=== PATIENT | male | born 1980 | race Caucasian/White ===

== ENCOUNTER → 2018-04-05 11:01 | Outpatient (CLI) | payer BC, SELFPAY ==
[2018-04-05 12:13] LABS: Hematocrit 43.1 % (40-54); Hemoglobin 14.8 g/dl (13.0-16.5); Mean Corp Hgb Conc 34.3 g/gl (32-36); Mean Corpuscular Hgb 31.7 pg (27.0-32.0); Mean Corpuscular Volume 92.3 fL (80-94); Mean Platelet Vol. 10.9 fl (6.2-12.0); Platelet Count 231 K/mm3 (150-450); RBC Distribution Width CV 12.9 % (11.6-14.6); RBC Distribution Width SD 42.6 fl (35.1-43.9); Red Blood Count 4.67 M/mm3 (4.6-6.2)
[2018-04-05 12:18] LABS: Scan Indicated on CBC? Y/N NO
[2018-04-05 12:38] LABS: AST(SGOT) 24 U/L (15-37); Alanine Aminotransfer ALT/SGPT 39 U/L (16-61); Albumin, Serum 3.8 g/dL (3.2-5.0); Alkaline Phosphatase 56 U/L (45-117); Anion Gap 9 (5-15); BUN 15 mg/dL (7-18); Calcium,Total 8.5 mg/dL (8.5-10.1); Chloride 106 mmol/L (98-107); Cholesterol 232 mg/dL (200); Creatinine, Serum 0.94 mg/dL (0.70-1.30); EST Glomerular Filtration Rate 95 mL/min (>60); Est Glom Filt Rate - Afr Amer 115 mL/min (>60); Globulin 3.7 g/dL (2.2-4.2); Glucose 88 mg/dL (74-106); High Density Lipoprotein 39 mg/dL; Potassium 4.1 mmol/L (3.5-5.1); Protein, Total 7.5 g/dL (6.4-8.2); Sodium Level 142 mmol/L (136-145); Thyroid Stim Hormone (TSH) 2.46 uIU/mL (0.358-3.74); Triglycerides 153 mg/dL; Very Low Density Lipoprotein 31 mg/dL (5-40)
== END ==
LOC: MTLAB 11:07
PROVIDERS: Family Provider Family Medicine; PCP Family Medicine; Visit Provider Family Medicine
DX: E66.01 Morbid (severe) obesity due to excess calories (principal)
CPT/HCPCS: 36415; 80053; 80061; 84443; 85027

== ENCOUNTER → 2018-10-11 09:33 | Outpatient (CLI) | payer BC, SELFPAY ==
[2018-10-11 12:25] LABS: Cholesterol 222 mg/dL (200); High Density Lipoprotein 35 mg/dL; Triglycerides 271 mg/dL; Very Low Density Lipoprotein 54 mg/dL (5-40)
--- OUTSIDE RECORDS SUMMARY | 2019-01-12 16:32 | XMS RPT_ITS ---
:1980 Author Organization [facility] Care Team Providers Name Role Phone VANDASTEVE Attending Unavailable YOGI SAN MD Primary Care Unavailable Yogi San Attending Unavailable Yogi San Primary Care Unavailable Yogi San Attending Unavailable Yogi San Referring Unavailable Yogi San Primary Care Unavailable PROBLEMS PROBLEMS DATE TYPE CONDITION / CODE ATTENDING STATUS SOURCE 04/05/2018 Unknown E66.01 - Morbid Yogi San Active Ale (severe) obesity Community due to excess Hospital calories / Repository E66.01(ICD-10) PROCEDURES PROCEDURES No Procedure Records FoundRESULTS RESULTS LIPID PROFILE Collected: 10/11/2018 Status: F Source: [facility] 9:35 AM [facility] REPOSITORY TYPE CODE TESTS RESULT OUT OF RANGE REFERENCE UNITS LAB L501.4900 200 mg/dL High CHOL 222 Result Comment: <200 mg/dL Desirable 200-240 mg/dL Borderline >240 mg/dL High Risk LAB L501.5000 mg/dL High TRIG 271 Result Comment: The drugs N-Acetylcysteine and Metamizole may falsely depress this assay. Serum Triglycerides Reference Interval Normal <150 mg/dL Borderline high 150 - 199 mg/dL High 200 - 499 mg/dL Very High > or = 500 mg/dL LAB L501.6400 mg/dL Low HDL 35 Result Comment: The drugs N-Acetylcysteine and Metamizole may falsely depress this assay. Reference Range HDL <40 mg/dL Low HDL Cholesterol HDL >or= 60 mg/dL High HDL Cholesterol LAB L501.6500 0-130 mg/dL High LDL 133 LAB L501.6600 5-40 mg/dL High VLDL 54 Performed By: #### L500.4100 #### [facility] [address] [place], [address] XR KNEE THREE VIEWS Observed: 04/14/2018 Status: F Source: [facility] 10:38 PM [facility]ATION REPOSITORY ORIGINAL XR KNEE THREE VIEWS RIGHT CLINICAL STATEMENT: Lateral RIGHT knee pain after twisting injury today COMPARISON: None FINDINGS: No acute fracture or dislocation is identified. No joint effusion is seen. The joint spaces are maintained. There is no radiopaque foreign body. IMPRESSION: No acute fracture or dislocation. I have personally reviewed the images of this examination and agree with the resident's findings and interpretation. Interpreted By: Hudson Newton MD Preliminary Report By: Orion Treviño DO Electronically Signed By: Hudson Newton MD Dictated Date: 04/14/2018 10:42:53 PM Prelim Date: 04/14/2018 10:44:11 PM Sign Date: 04/14/2018 10:54:46 PM CBC-COMPLETE BLOOD CNT Collected: 04/05/2018 Status: F Source: [facility] NO DIFF 11:10 AM [facility] REPOSITORY TYPE CODE TESTS RESULT OUT OF RANGE REFERENCE UNITS LAB L100.1000 4.4-11.0 K/mm3 Normal WBC 8.0 LAB L100.1200 4.6-6.2 M/mm3 Normal RBC 4.67 LAB L100.1300 13.0-16.5 g/dl Normal HGB 14.8 LAB L100.1400 40-54 % Normal HCT 43.1 LAB L100.1500 80-94 fL Normal MCV 92.3 LAB L100.1600 27.0-32.0 pg Normal MCH 31.7 LAB L100.1700 32-36 g/gl Normal MCHC 34.3 LAB L100.1810 11.6-14.6 % Normal RDW CV 12.9 LAB L100.1820 35.1-43.9 fl Normal RDW SD 42.6 LAB L100.1900 150-450 K/mm3 Normal PLT 231 LAB L100.2000 6.2-12.0 fl Normal MPV 10.9 Performed By: #### L100.0500 #### [facility] [address] [place], [address] COMPREHENSIVE METABOLIC Collected: 04/05/2018 Status: F Source: [facility] 11:10 AM [facility] REPOSITORY TYPE CODE TESTS RESULT OUT OF RANGE REFERENCE UNITS LAB L501.0100 74-106 mg/dL Normal GLU 88 Result Comment: Please note revised GLUCOSE reference range effective 2017. LAB L501.1000 7-18 mg/dL Normal BUN 15 LAB L501.1100 0.70-1.30 mg/dL Normal CREAT,SERUM 0.94 Result Comment: The validity of the calculated GFR AND GFRAA in patients over 70 years has not been determined. Clinical correlation is essential. LAB L501.1110 >60 mL/min Normal EST GFR 95 Result Comment: Non- GFR Calc LAB L501.1115 >60 mL/min Normal EST GFR - AA 115 Result Comment: GFR Calc LAB L501.1300 10-20 RATIO Normal BUN/CRE 16.0 LAB L501.1500 6.4-8.2 g/dL T Normal PROT 7.5 LAB L501.1800 3.2-5.0 g/dL Normal ALB 3.8 LAB L501.1950 2.2-4.2 g/dL Normal GLOB 3.7 LAB L501.2000 0.9-2.4 RATIO Normal A/G 1.0 LAB L501.2200 8.5-10.1 mg/dL CA Normal 8.5 LAB L501.4100 15-37 U/L Normal AST 24 LAB L501.4305 45-117 U/L Normal ALK P 56 LAB L501.4405 16-61 U/L Normal ALT 39 LAB L501.4600 0.20-1.00 mg/dL T Normal BILI 0.30 LAB L501.5300 136-145 mmol/L NA Normal 142 LAB L501.5600 3.5-5.1 mmol/L K Normal 4.1 LAB L501.5900 98-107 mmol/L CL Normal 106 LAB L501.6100 21.0-32.0 mmol/L Normal CO2 27.0 LAB L501.6200 5-15 Normal GAP 9 Performed By: #### L500.4050, L500.4100, L501.9520 #### [facility] [address] [place], [place], [id number] LIPID PROFILE Collected: 04/05/2018 Status: F Source: [facility] 11:10 AM [facility] REPOSITORY TYPE CODE TESTS RESULT OUT OF RANGE REFERENCE UNITS LAB L501.4900 200 mg/dL High CHOL 232 Result Comment: <200 mg/dL Desirable 200-240 mg/dL Borderline >240 mg/dL High Risk LAB L501.5000 mg/dL Normal TRIG 153 Result Comment: The drugs N-Acetylcysteine and Metamizole may falsely depress this assay. Serum Triglycerides Reference Interval Normal <150 mg/dL Borderline high 150 - 199 mg/dL High 200 - 499 mg/dL Very High > or = 500 mg/dL LAB L501.6400 mg/dL Low HDL 39 Result Comment: The drugs N-Acetylcysteine and Metamizole may falsely depress this assay. Reference Range HDL <40 mg/dL Low HDL Cholesterol HDL >or= 60 mg/dL High HDL Cholesterol LAB L501.6500 0-130 mg/dL High LDL 162 LAB L501.6600 5-40 mg/dL Normal VLDL 31 Performed By: #### L500.4050, L500.4100, L501.9520 #### [facility] [address] [place], [place], [id number] THYROID STIM HORMONE Collected: 04/05/2018 Status: F Source: [facility] (TSH) 11:10 AM [facility] REPOSITORY TYPE CODE TESTS RESULT OUT OF RANGE REFERENCE UNITS LAB L501.9520 0.358-3.74 uIU/mL Normal TSH 2.46 Performed By: #### L500.4050, L500.4100, L501.9520 #### [facility] [address] [place], [address] ALLERGIES ALLERGIES No Allergies Records FoundENCOUNTERS ENCOUNTERS ADMIT/DISCHARGE ACCOUNT NUMBER ADMITTING ENCOUNTER LOCATION SOURCE CLASS 10/11/2018 [id number] [facility] ding:MFPLAB Repository 04/14/2018/04/14/20 [id number] Emergency BBuilding:[address] Repository 04/05/2018 [id number] [facility] ding:MTLAB Repository PAYERS PAYERS ENCOUNTER GUARANTOR PAYER SUBSCRIBER SOURCE 10/11/2018 ASHIA Cordova Primary ASHIA [place] [id number] Insurance:ANTHEMPolicy HERSHBERGERDOB: [facility] Number: [id number] [facility] [address] [place] [id number] [place] [address]Mht: Date:[id number] UZAIR [id number], [place] () [address]IA: 10/11/2018 [facility]SELF [facility] Number: Effective Repository Date:2018-10-11 04/14/2018 ASHIA Cordova [facility] HERSHBERGERDOB: Insurance:ANTHEM BLUE HERSHBERGERDOB: [facility] [id number] Repository [address] Number: [place], [place] [id number] [place] [address]Zgo: ([phone]) Date:2018-04-14 [address]Ifq: [id number] [phone] ()Tel: [phone]) Name:DENISSE DUNNE () () [place] [phone] () [phone]: 04/05/2018 ASHIA Cordova Primary ASHIA [place] [id number] Insurance:ANTHEMPolicy HERSHBERGERDOB: Community [address] Number: [id number] MAGGIE JUANITA, [id number] [place]ository [place] [address]Dkp: Date:[id number], [place] () [address]LQ: 04/05/2018 Secondary NOT GIVENUNK Ale Insurance:SELF PAY [facility] Number: Effective Repository Date:2018-04-05
== END ==
PROVIDERS: Family Provider Family Medicine; PCP Family Medicine; Visit Provider Family Medicine
DX: E78.5 Hyperlipidemia, unspecified (principal)
CPT/HCPCS: 36415; 80061

== ENCOUNTER → 2021-09-12 10:24 | Outpatient (CLI) | payer OTHER, SELFPAY ==
[2021-09-12 12:33] LABS: Absolute Lymphocyte Count 1.96 X10^3/uL (0.83-4.51); Absolute Neutrophil Count 2.5 X10^3/uL (2.0-7.7); Basophil# 0.06 X10^3/uL; Basophil% 1.2 % (0-1); Eosinophil# 0.16 X10^3/uL; Eosinophils% 3.1 % (0-5); Hematocrit 43.3 % (40-54); Hemoglobin 14.6 g/dL (13.0-16.5); Lymphocyte # 1.96 X10^3/ul (0.83-4.51); Mean Corp Hgb Conc 33.7 g/dL (32-36); Mean Corpuscular Hgb 31.3 pg (27.0-32.0); Mean Corpuscular Volume 92.7 fL (80-94); Mean Platelet Vol. 11.2 fl (6.2-12.0); Monocyte# 0.51 X10^3/uL; Monocyte% 9.9 % (0-10); NRBC Flagged by Analyzer 0 % (0-5); Neutrophil # 2.45 X10^3/uL (2.7-7.7); Neutrophil % 47.4 % (47-70); Platelet Count 221 K/mm3 (150-450); RBC Distribution Width CV 12.4 % (11.6-14.6); RBC Distribution Width SD 42.5 fl (35.1-43.9); Red Blood Count 4.67 M/mm3 (4.6-6.2); White Blood Count 5.2 K/mm3 (4.4-11.0)
[2021-09-12 13:07] LABS: ALB/GLOB Ratio 0.9 RATIO (0.9-2.4); AST(SGOT) 24 U/L (15-37); Alanine Aminotransfer ALT/SGPT 36 U/L (16-61); Albumin, Serum 3.5 g/dL (3.2-5.0); Alkaline Phosphatase 51 U/L (45-117); Anion Gap 6 (5-15); BUN 15 mg/dL (7-18); BUN/Creat Ratio 15.7 RATIO (10-20); Calcium,Total 8.9 mg/dL (8.5-10.1); Chloride 108 mmol/L (98-107); Cholesterol 233 mg/dL (200); Creatinine, Serum 0.96 mg/dL (0.70-1.30); EST Glomerular Filtration Rate 91 mL/min (>60); Est Glom Filt Rate - Afr Amer 111 mL/min (>60); Glucose 100 mg/dL (74-106); High Density Lipoprotein 41 mg/dL; Protein, Total 7.5 g/dL (6.4-8.2); Sodium Level 140 mmol/L (136-145); T4 Free Direct 0.89 ng/dL (0.76-1.46); Thyroid Stim Hormone (TSH) 1.89 uIU/mL (0.358-3.74); Triglycerides 212 mg/dL; Very Low Density Lipoprotein 42 mg/dL (5-40)
[2021-09-15 18:46] LABS: Hemoglobin A1c 5.2 % (3.8-5.6)
[2021-09-15 19:07] LABS: Thyroid Stim Immunoglob <0.10 IU/L (0.00-0.55)
[2021-09-16 07:36] LABS: Anti-Thyroglobulin AB < 1.0 IU/mL (0.0-0.9); Thyroid Peroxidase AB 8 IU/mL (0-34)
== END ==
PROVIDERS: PCP Family Medicine; Referring Provider Family Medicine; Visit Provider Family Medicine
DX: E78.5 Hyperlipidemia, unspecified (principal); E01.0 Iodine-deficiency related diffuse (endemic) goiter
CPT/HCPCS: 36415; 80053; 80061; 83036; 84432; 84439; 84443; 84445; 85025; 86376; 86800

== ENCOUNTER → 2021-09-19 08:14 | Outpatient (CLI) | payer OTHER, SELFPAY ==
--- NOTE | 2021-09-19 08:18 | US_ITS ---
INDICATION: THYROMEGALY EXAMINATION: Ultrasound US Thyroid (eg thyroid, parathyroid, parotid) TECHNIQUE: Michael scale and color doppler imaging was performed of the thyroid gland. COMPARISON: None. FINDINGS: RIGHT THYROID LOBE: 5.4 x 1.7 x 1.5 cm. Homogeneous echotexture with normal vascularity. [No thyroid nodules are present. LEFT THYROID LOBE: 4.1 x 1.8 x 1.3 cm. Homogeneous echotexture with normal vascularity. [No thyroid nodules are present. ISTHMUS: 3 mm. No thyroid nodules are present. US/Thyroid IMPRESSION: Negative thyroid ultrasound examination. Electronically Signed: Grey Elam MD at 10:43 EST Tel , Service support ,
== END ==
LOC: US 08:17
PROVIDERS: PCP Family Medicine; Referring Provider Family Medicine; Visit Provider Family Medicine
DX: E01.0 Iodine-deficiency related diffuse (endemic) goiter (principal)
CPT/HCPCS: 76536

== ENCOUNTER 2021-12-27 07:52 | Outpatient (CLI) | payer BC, SELFPAY ==
--- NOTE | 2021-12-27 07:56 | US_ITS ---
STUDY: ABDOMINAL ULTRASOUND - RIGHT UPPER QUADRANT REASON FOR VISIT: Male, 41 years old RUQ PAIN TECHNIQUE: Ultrasound evaluation of the right upper quadrant was performed with real-time and static thompson-scale imaging. TECHNICAL QUALITY: Limited. Examination limited by bowel gas. COMPARISON: None. FINDINGS: Liver: The liver measures 16.3 cm. There is increased echogenicity consistent with fatty infiltration. The bile ducts are within normal limits. There is hepatic color flow. The direction of portal flow is hepatopetal. There is no demonstrated mass lesion. Gallbladder: Normal distended gallbladder. The gallbladder wall measures 1.3 mm. There is a negative sonographic Jeffries''s sign. There is no pericholecystic fluid. There are no gallstones. Common Bile Duct (C.B.D.): The common bile duct measures 4.0 mm. Pancreas: The visualized pancreas is sonographically normal Right Kidney: Normal size of the right kidney. The right kidney measures 12.1 x 7.0 x 7.0 cm. Normal renal cortex. The right cortex measures 2.5 cm. There is no demonstrated renal mass or cyst. There is no right hydronephrosis. US/Abdomen Limited IMPRESSION: Fatty liver, no discrete lesion, there is some focal fatty sparing adjacent to the gallbladder Electronically Signed: Iain Forde MD at 8:36 EST ,
== END 2021-12-27 23:59 | disposition home or self-care (01) ==
LOC: US 07:53
PROVIDERS: PCP Family Medicine; Referring Provider Family Medicine; Visit Provider Family Medicine
DX: R10.11 Right upper quadrant pain (principal)
CPT/HCPCS: 76705

== ENCOUNTER → 2023-11-18 | Outpatient (CLI) | payer BC, SELFPAY ==
[2023-11-18 10:00] LABS: Absolute Lymphocyte Count 2.12 X10^3/uL (0.83-4.51); Absolute Neutrophil Count 2.7 X10^3/uL (2.0-7.7); Basophil# 0.04 X10^3/uL; Basophil% 0.7 % (0-1); Eosinophil# 0.16 X10^3/uL; Eosinophils% 2.9 % (0-5); Hematocrit 42.3 % (40-54); Hemoglobin 14.3 g/dL (13.0-16.5); Lymphocyte # 2.12 X10^3/ul (0.83-4.51); Lymphocyte % 38.4 % (19-41); Mean Corp Hgb Conc 33.8 g/dL (32-36); Mean Corpuscular Hgb 31.4 pg (27.0-32.0); Mean Platelet Vol. 10.8 fl (6.2-12.0); Monocyte# 0.43 X10^3/uL; Monocyte% 7.8 % (0-10); NRBC Flagged by Analyzer 0 % (0-5); Neutrophil # 2.74 X10^3/uL (2.7-7.7); Neutrophil % 49.7 % (47-70); Platelet Count 216 K/mm3 (150-450); RBC Distribution Width CV 12.3 % (11.6-14.6); RBC Distribution Width SD 42.5 fl (35.1-43.9); Red Blood Count 4.55 M/mm3 (4.6-6.2); White Blood Count 5.5 K/mm3 (4.4-11.0)
[2023-11-18 10:47] LABS: AST(SGOT) 27 U/L (15-37); Alanine Aminotransfer ALT/SGPT 40 U/L (16-61); Albumin, Serum 3.6 g/dL (3.2-5.0); Alkaline Phosphatase 51 U/L (45-117); Anion Gap 2 (5-15); BUN 16 mg/dL (7-18); BUN/Creat Ratio 16.6 RATIO (10-20); Chloride 109 mmol/L (98-107); Cholesterol 230 mg/dL (200); Creatinine, Serum 0.96 mg/dL (0.70-1.30); EST Glomerular Filtration Rate 89 mL/min (>60); Est Glom Filt Rate - Afr Amer 108 mL/min (>60); Globulin 3.6 g/dL (2.2-4.2); Glucose 96 mg/dL (74-106); High Density Lipoprotein 40 mg/dL; Potassium 4.6 mmol/L (3.5-5.1); Protein, Total 7.2 g/dL (6.4-8.2); Sodium Level 139 mmol/L (136-145); Triglycerides 165 mg/dL; Very Low Density Lipoprotein 33 mg/dL (5-40)
== END | disposition home or self-care (01) ==
LOC: MFPLAB 09:03
PROVIDERS: PCP Family Medicine; Visit Provider Family Medicine
DX: E78.5 Hyperlipidemia, unspecified (principal)
CPT/HCPCS: 36415; 80053; 80061; 85025

== ENCOUNTER → 2025-05-10 | Outpatient (CLI) | payer OTHER, SELFPAY ==
[2025-05-10 10:44] LABS: Hematocrit 41.6 % (40-54); Hemoglobin 14.2 g/dL (13.0-16.5); Immature Granulocytes Count 0.030 X10^3/uL (0.0-0.0); Mean Corp Hgb Conc 34.1 g/dL (32-36); Mean Corpuscular Volume 93.5 fL (80-94); Mean Platelet Vol. 10.9 fl (6.2-12.0); NRBC Flagged by Analyzer 0 % (0-5); Platelet Count 211 K/mm3 (150-450); RBC Distribution Width CV 12.6 % (11.6-14.6); RBC Distribution Width SD 43.8 fl (35.1-43.9); Red Blood Count 4.45 M/mm3 (4.6-6.2); White Blood Count 5.9 K/mm3 (4.4-11.0)
[2025-05-10 13:17] LABS: AST(SGOT) 25 U/L (<=37); Alanine Aminotransfer ALT/SGPT 23 U/L (<=46); Albumin, Serum 4.1 g/dL (3.5-5.0); Alkaline Phosphatase 52 U/L (40-129); Anion Gap 11 (5-15); BUN 13 mg/dL (4-19); BUN/Creat Ratio 13.1 RATIO (10-20); Calcium,Total 9.0 mg/dL (7.6-11.0); Carbon Dioxide 23.6 mmol/L (21.0-32.0); Chloride 107 mmol/L (98-108); Cholesterol 199 mg/dL (<=200); Globulin 3.0 g/dL (2.2-4.2); Glucose 94 mg/dL (70-99); Low Density Lipoprotein Calc. 133 mg/dL; PSA,Total - Annual Screen 0.84 ng/mL (0.02-4.00); Potassium 4.2 mmol/L (3.3-5.1); Triglycerides 130 mg/dL; Very Low Density Lipoprotein 26 mg/dL (5-40); cholesterol:hdl ratio screen 4.91
== END | disposition home or self-care (01) ==
LOC: MTLAB 09:40
PROVIDERS: PCP Family Medicine; Referring Provider Family Medicine; Visit Provider Family Medicine
DX: E78.5 Hyperlipidemia, unspecified (principal); Z12.5 Encounter for screening for malignant neoplasm of prostate
CPT/HCPCS: 36415; 80053; 80061; 84153; 85025; G0103

== ENCOUNTER → 2025-06-08 | Outpatient (CLI) | payer OTHER, SELFPAY ==
--- OUTSIDE RECORDS SUMMARY | 2025-06-08 07:29 | XMS RPT_ITS | CCD ---
Author Organization [facility] Care Team Providers Care Bender Hand Name Role Phone VANDAIZABELLAON Unavailable YOGI Hodges MD, YOGI Primary Care Physician Mena WILKERSON, Dr. Yogi Jarquin Primary Care Provider [phone] Mena WILKERSON, Dr. Yogi Jarquin Attending Provider Mena WILKERSON, Dr. Yogi Jarquin Referring Provider JERICA VASQUEZ DO Attending Unavailable MENA WILKERSON, YOGI Primary Care Unavailable YOGI SAN MD Primary Care Unavailable DR FIDEL EUBANKS MD Attending UnavailYogi Espinosa Attending Yogi Hodges Primary Care Unavailable Yogi San Referring Unavailable Yogi San Attending Yogi Hodges Primary Care Unavailable Yogi San Referring Unavailable Yogi San Attending Yogi Hodges Primary Care Unavailable Yogi San Referring Unavailable Allergies Allergy Classification Reported Allergen(s) Allergy Type Date of Onset Reaction(s) Facility (3 sources) Iodine; Translations: [iodine] Drug Allergy 03-30-2023 Unknown [facility] (1 source) Contrast media; Translations: [iodinated radiocontrast agents] Drug allergy [facility] (1 source) Iodine Drug Allergy 03-30-2023 [facility] Repository Medications Current Medications Medication Drug Class(es) Dates Sig (Normalized) Sig (Original) acetaminophen 325 mg / oxyCODONE hydrochloride 5 mg oral tablet (1 source) Opioid Agonist Start: 05-26-2025 End: 05-29-2025 take 1 tablet by mouth every six hours as needed for pain Percocet 5 mg-325 mg oral tablet Dose = 1 tab(s), Oral, q6h, PRN Pain, X 3 day(s), # 8 tab(s), 0 Refill(s), Elevated lipase Abdominal pain, 113.2 Start Date: 05/26/25 Stop Date: 05/29/25 Status: Ordered Quantity: 8.0 Unit: tab(s) Repeat number: 1 Indications: Abnormal levels of other serum enzymes; Unspecified abdominal pain; benzonatate 200 mg oral capsule (2 sources) Non-narcotic Antitussive Start: 09-27-2019 take 1 capsule by mouth three times daily as needed for cough Benzonatate 200 mg capsule Active 200 mg PO THREE TIMES A DAY as needed for cough 20 0 September 27, 2019 1:00am hold other cough-suppression medications while taking benzonatate Qcypkzqfnk-Rg-Kq-Rick taminophen (2 sources) Start: 09-27-2019 Yuwnyvovue-Bb-Ow- Acetaminophen (Cold And Flu Relief Plus (D/N)) 6.25 mg-5 mg-10 mg-325 mg (nt) capsule, sequential Active NMA PO 0 September 27, 2019 1:00am Start: 09-27-2019 take 1 capsule by mouth once Ljknptlthq-Uh-Ll-Acetaminophen (Cold And Flu Relief Plus (D/N)) 6.25 mg-5 mg-10 mg-325 mg (nt) capsule, sequential Active CAP PO September 27, 2019 12:00am ondansetron 4 mg oral tablet (1 source) Serotonin-3 Receptor Antagonist Start: 05-26-2025 End: 05-29-2025 Zofran 4 mg oral tablet Dose : 4 mg = 1 tab(s), Oral, q8h, PRN Nausea/Vomiting, X 3 day(s), # 8 tab(s), 0 Refill(s), 05/29/25 10:54:00 PM EDT Start Date: 05/26/25 Stop Date: 05/29/25 Status: Ordered Quantity: 8.0 Unit: tab(s) Repeat number: 1 Completed/Discontinued Medications Medication Drug Class(es) Dates Sig (Normalized) Sig (Original) amoxicillin 500 mg oral capsule (2 sources) Penicillin-class Antibacterial Start: 03-30-2023 End: 04-09-2023 take 1 capsule by mouth three times daily Amoxicillin 500 mg capsule Discontinued 500 mg PO THREE TIMES A DAY 30 10 0 March 30, 2023 12:00am April 08, 2023 12:00am April 09, 2023 12:05am Problems Active Problems Problem Classification Problem Date Documented Da te Episodic/Chronic Abdominal pain (2 sources) Abdominal pain; Translations: [Unspecified abdominal pain] Onset: 05-26-2025 Episodic Disorders of lipid metabolism (1 source) Hyperlipidemia, unspecified; Translations: [Hyperlipidemia, unspecified] Onset: 05-16-2025 Chronic Nonspecific chest pain (2 sources) Chest pain; Translations: [Chest pain, unspecified] Onset: 05-26-2025 Episodic Other liver diseases (1 source) Fatty (change of) liver, not elsewhere classified; Translations: [Fatty (change of) liver, not elsewhere classified] Onset: 06-07-2025 Chronic Other liver diseases (1 source) Enzyme level - finding; Translations: [Abnormal levels of other serum enzymes] Onset: 05-26-2025 Episodic Other liver diseases (1 source) Abnormal levels of other serum enzymes; Translations: [Abnormal levels of other serum enzymes] Onset: 05-26-2025 Episodic Other nervous system disorders (1 source) Carpal tunnel syndrome, bilateral upper limbs; Translations: [Carpal tunnel syndrome, bilateral upper limbs] Onset: 06-04-2025 Chronic Other nervous system disorders (1 source) Paresthesia; Translations: [Paresthesia of skin] Onset: 05-26-2025 Episodic Other nervous system disorders (1 source) Paresthesia of skin; Translations: [Paresthesia of skin] Onset: 05-26-2025 Episodic Other upper respiratory infections (2 sources) Acute maxillary sinusitis; Translations: [Acute maxillary sinusitis, unspecified] 03-30-2023 Episodic Past or Other Problems Problem Classification Problem Date Documented Da te Episodic/Chronic Other screening for suspected conditions (not mental disorders or infectious disease) (2 sources) Encounter for screening for malignant neoplasm of colon; Translations: [Encounter for screening for malignant neoplasm of colon] Onset: 02-23-2025 Episodic Results Test Name Value Interpretation Reference Range Facility .Auto Diffon 05-26-2025 Basophil, Absolute 0.0 10 3/mcL Normal 0.0-0.3 [facility] Comment on above: Performed By: #### A SHEBA, MDW, GFR, CBC, CMP, LIP, TROPHS, ADIFF #### [address] [address] Basophils/100 WBC (Bld) 0.5 % Normal 0.0-2.5 [facility] Comment on above: Performed By: #### A JOSE SCRUGGS, GFR, CBC, CMP, LIP, TROPHS, ADIFF #### [address] [address] Eosinophil, Absolute 0.1 10 3/mcL Normal 0.0-0.7 [facility] Comment on above: Performed By: #### A JOSE SCRUGGS, GFR, CBC, CMP, LIP, TROPHS, ADIFF #### [address] [address] Eosinophils/100 WBC (Bld) 1.5 % Normal 0.0-6.0 [facility] Comment on above: Performed By: #### A JOSE SCRUGGS, GFR, CBC, CMP, LIP, TROPHS, ADIFF #### [address] [address] Lymphocyte, Absolute 2.1 10 3/mcL Normal 0.9-4.3 [facility] Comment on above: Performed By: #### A JOSE SCRUGGS, GFR, CBC, CMP, LIP, TROPHS, ADIFF #### [address] [address] Lymphocytes/100 WBC (Bld) 26.4 % Normal 20.0-40.0 [facility] Comment on above: Performed By: #### A JOSE SCRUGGS, GFR, CBC, CMP, LIP, TROPHS, ADIFF #### [address] [address] Monocyte, Absolute 0.6 10 3/mcL Normal 0.1-1.4 [facility] Comment on above: Performed By: #### A JOSE SCRUGGS, GFR, CBC, CMP, LIP, TROPHS, ADIFF #### [address] [address] Monocytes/100 WBC (Bld) 7.3 % Normal 2.0-13.0 [facility] Comment on above: Performed By: #### A JOSE SCRUGGS, GFR, CBC, CMP, LIP, TROPHS, ADIFF #### [address] [address] Neutrophils/100 WBC (Bld) 64.3 % Normal 50.0-75.0 [facility] Comment on above: Performed By: #### A JOSE SCRUGGS, GFR, CBC, CMP, LIP, TROPHS, ADIFF #### [address] [address] .GFRon 05-26-2025 Estimated Glomerular Filtration Rate 98 ml/min/1.73sqm Normal [facility] Comment on above: Result Comment: Stages of Chronic Kidney Disease (CKD) Stage Description eGFR(ml/min/1.73 sq.m.) CKD 1 Normal kidney function or >=90 normal kindney function with possible kidney damage (ex. Proteinuria) CKD 2 Kidney damage with mild loss 60-89 of kidney function CKD 3a Mild to moderate loss of kidney 45-59 function CKD 3b Moderate to severe loss of 30-44 of kindey function CKD 4 Severe loss of kidney function 15-29 CKD 5 Kidney failure <15 Note: (go live 2024) the eGFR calculation was updated to the 2020 CKD-EPI creatinine equation without a race factor to calculate the eGFR results. Performed By: #### A JOSE SCRUGGS, GFR, CBC, CMP, LIP, TROPHS, ADIFF #### [address] [address] .MDWon 05-26-2025 Monocyte Distribution Width 19.45 Normal 0.00-20.00 [facility] Comment on above: Result Comment: For ED adult patients suspected of sepsis, MDW<=20.0 does not rule out sepsis or risk of sepsis Performed By: #### A JOSE SCRUGGS, GFR, CBC, CMP, LIP, TROPHS, ADIFF #### [address] [address] .NEUABSon 05-26-2025 Neutrophil, Absolute 5.2 10 3/mcL Normal 2.3-8.1 [facility] Comment on above: Performed By: #### A JOSE SCRUGGS, GFR, CBC, CMP, LIP, TROPHS, ADIFF #### [address] [address] CBCon 05-26-2025 Erythrocyte distribution width (RBC) [Ratio] 13.6 % Normal 11.5-15.5 [facility] Comment on above: Performed By: #### A JOSE SCRUGGS, GFR, CBC, CMP, LIP, TROPHS, ADIFF #### [place] [address] Hematocrit (Bld) [Volume fraction] 45.3 % Normal 40.0-52.0 [facility] Comment on above: Performed By: #### A JOSE SCRUGGS, GFR, CBC, CMP, LIP, TROPHS, ADIFF #### [place] [address] Hgb 15.3 G/dL Normal 13.0-17.5 [facility] Comment on above: Performed By: #### A JOSE SCRUGGS, GFR, CBC, CMP, LIP, TROPHS, ADIFF #### [place] [address] MCH (RBC) [Entitic mass] 32.4 pg Normal 27.0-33.0 [facility] Comment on above: Performed By: #### A JOSE SCRUGGS, GFR, CBC, CMP, LIP, TROPHS, ADIFF #### [place] [address] MCHC 33.8 G/dL Normal 32.0-36.0 [facility] Comment on above: Performed By: #### A JOSE SCRUGGS, GFR, CBC, CMP, LIP, TROPHS, ADIFF #### [place] [address] MCV (RBC) [Entitic vol] 96.0 fL Normal 81.0-100.0 [facility] Comment on above: Performed By: #### A JOSE SCRUGGS, GFR, CBC, CMP, LIP, TROPHS, ADIFF #### [address] [address] Platelet 205 10 3/mcL Normal 150-450 [facility] Comment on above: Performed By: #### A JOSE SCRUGGS, GFR, CBC, CMP, LIP, TROPHS, ADIFF #### [address] [address] Platelet mean volume (Bld) [Entitic vol] 8.7 fL Normal 6.4-10.5 [facility] Comment on above: Performed By: #### A JOSE SCRUGGS, GFR, CBC, CMP, LIP, TROPHS, ADIFF #### [address] [address] RBC 4.72 10 6/mcL Normal 4.50-6.00 [facility] Comment on above: Performed By: #### A JOSE SCRUGGS, GFR, CBC, CMP, LIP, TROPHS, ADIFF #### [address] [address] WBC 8.1 10 3/mcL Normal 4.5-10.8 [facility] Comment on above: Performed By: #### A JOSE SCRUGGS, GFR, CBC, CMP, LIP, TROPHS, ADIFF #### [address] [address] CMPon 05-26-2025 Albumin Level 3.8 G/dL Normal 3.5-5.0 [facility] Comment on above: Performed By: #### A JOSE SCRUGGS, GFR, CBC, CMP, LIP, TROPHS, ADIFF #### [address] [address] Albumin/Globulin [Mass ratio] 1.1 {ratio} Normal 1.1-2.5 [facility] Comment on above: Performed By: #### A JOSE SCRUGGS, GFR, CBC, CMP, LIP, TROPHS, ADIFF #### [address] [address] ALP [Catalytic activity/Vol] 59 U/L Normal 40-135 [facility] Comment on above: Performed By: #### A JOSE SCRUGGS, GFR, CBC, CMP, LIP, TROPHS, ADIFF #### [address] [address] ALT [Catalytic activity/Vol] 19 U/L Normal 16-63 [facility] Comment on above: Performed By: #### A JOSE SCRUGGS, GFR, CBC, CMP, LIP, TROPHS, ADIFF #### [address] [address] AST [Catalytic activity/Vol] 22 U/L Normal 10-40 [facility] Comment on above: Performed By: #### A JOSE SCRUGGS, GFR, CBC, CMP, LIP, TROPHS, ADIFF #### [place] [address] Bili Total 0.4 mg/dL Normal 0.2-1.0 [facility] Comment on above: Result Comment: Use of this assay is not recommended for patients undergoing treatment with eltrombopag due to the potential for falsely elevated results. Performed By: #### A JOSE SCRUGGS, GFR, CBC, CMP, LIP, TROPHS, ADIFF #### [place] [address] BUN/Creatinine Ratio 9 ratio Normal 7-27 [facility] Comment on above: Performed By: #### A JOSE SCRUGGS, GFR, CBC, CMP, LIP, TROPHS, ADIFF #### [address] [address] Calcium [Mass/Vol] 9.1 mg/dL Normal 8.4-10.[address] [facility] Comment on above: Performed By: #### A JOSE SCRUGGS, GFR, CBC, CMP, LIP, TROPHS, ADIFF #### [address] [address] Chloride [Moles/Vol] 107 mmol/L Normal 98-107 [facility] Comment on above: Performed By: #### A JOSE SCRUGGS, GFR, CBC, CMP, LIP, TROPHS, ADIFF #### [address] [address] CO2 [Moles/Vol] 26 mmol/L Normal 22-29 [facility] Comment on above: Performed By: #### A JOSE SCRUGGS, GFR, CBC, CMP, LIP, TROPHS, ADIFF #### [address] [address] Creatinine [Mass/Vol] 0.97 mg/dL Normal 0.67-1.17 [facility] Comment on above: Performed By: #### A JOSE SCRUGGS, GFR, CBC, CMP, LIP, TROPHS, ADIFF #### [address] [address] Electrolyte Balance 9.0 mEq/L Normal 4.0-15.0 [facility] Comment on above: Performed By: #### A JOSE SCRUGGS, GFR, CBC, CMP, LIP, TROPHS, ADIFF #### [place] [address] Globulin 3.6 G/dL Normal 2.7-4.4 [facility] Comment on above: Performed By: #### A JOSE SCRUGGS, GFR, CBC, CMP, LIP, TROPHS, ADIFF #### [address] [address] Glucose [Mass/Vol] 128 mg/dL High 70-[address] [facility] Comment on above: Performed By: #### A JOSE SCRUGGS, GFR, CBC, CMP, LIP, TROPHS, ADIFF #### [address] [address] Potassium [Moles/Vol] 3.4 mmol/L Low 3.5-5.1 [facility] Comment on above: Performed By: #### A JOSE SCRUGGS, GFR, CBC, CMP, LIP, TROPHS, ADIFF #### [address] [address] Sodium [Moles/Vol] 142 mmol/L Normal 136-[address] [facility] Comment on above: Performed By: #### A JOSE SCRUGGS, GFR, CBC, CMP, LIP, TROPHS, ADIFF #### [facility] [address] [place], [place] [address] Total Protein 7.4 G/dL Normal 6.4-8.2 [facility] Comment on above: Performed By: #### A JOSE SCRUGGS, GFR, CBC, CMP, LIP, TROPHS, ADIFF #### [facility] [address] [place], [place] [address] Urea nitrogen [Mass/Vol] 9 mg/dL Normal 7-18 [facility] Comment on above: Performed By: #### A JOSE SCRUGGS, GFR, CBC, CMP, LIP, TROPHS, ADIFF #### [place] [id number] [place], [place] [address] CT ABD/PELVIS W/ IV CONTRAST ONLYon 05-26-2025 CT ABD/PELVIS W/ IV CONTRAST ONLY ORIGINAL EXAMINATION: CT OF THE ABDOMEN AND PELVIS WITH CONTRAST 05/26/2025 9:27 pm TECHNIQUE: CT of the abdomen and pelvis was performed with the administration of intravenous contrast. Multiplanar reformatted images are provided for review. Automated exposure control, iterative reconstruction, and/or weight based adjustment of the mA/kV was utilized to reduce the radiation dose to as low as reasonably achievable. COMPARISON: None. HISTORY: ORDERING SYSTEM PROVIDED HISTORY: Reason for Exam: intermittent upper abdominal pain x1 week. chest pain today. abdominal pain FINDINGS: Lower Chest: Same day CT chest reported separately. Organs: Liver, gallbladder, pancreas, spleen and adrenal glands are unremarkable. Kidneys: Symmetric nephrograms. No mass, nephrolithiasis or hydronephrosis. Ureters are normal in caliber. Pelvis: Bladder is suboptimally distended but otherwise appears unremarkable. Prostate is within normal limits for size. No pelvic or inguinal lymphadenopathy. GI: Colonic diverticulosis without diverticulitis. No bowel dilation or wall thickening. Nonvisualized appendix, no pericecal inflammatory changes. Unremarkable stomach. Small duodenal diverticulum. Small ovoid calcified density in the distal ileum is presumed to be ingested medication. No free intraperitoneal air. No abdominal lymphadenopathy. Vasculature: No aneurysm. Soft Tissues: No acute findings. Bones: No acute findings. Multilevel degenerative changes of the spine. Minimal grade 1 retrolisthesis of L3 on L4 and L4 on L5. Degenerative changes of the hips. IMPRESSION: No acute findings. Colonic diverticulosis without diverticulitis. I have personally reviewed the images of this examination and agree with the resident's findings and interpretation. Interpreted by: Дмитрий Mckinley Preliminary Report By: Mickey Morales Electronically signed By Дмитрий Mckinley Dictated Date: 05/26/2025 10:24:36 PM Prelim Date: 05/26/2025 10:29:43 PM Sign Date: 05/26/2025 10:37:40 PM Ordering Provider: [facility] CT ANGIOGRAPHY CHEST W/CONTR Seth 05-26-2025 CT ANGIOGRAPHY CHEST W/CONTRAST ORIGINAL EXAMINATION: CTA OF THE CHEST 05/26/2025 9:24 pm TECHNIQUE: CTA of the chest was performed after the administration of intravenous contrast. Multiplanar reformatted images are provided for review. MIP images are provided for review. Automated exposure control, iterative reconstruction, and/or weight based adjustment of the mA/kV was utilized to reduce the radiation dose to as low as reasonably achievable. COMPARISON: None. HISTORY: ORDERING SYSTEM PROVIDED HISTORY: Reason for Exam: pt c/o upper lt chest pain w numbness/tingling in lt arm started a couple of hours ago. had intermittent upper abd pain x1 week, pain FINDINGS: Pulmonary Arteries: Pulmonary arteries are adequately opacified for evaluation. No evidence of intraluminal filling defect to suggest pulmonary embolism. Mediastinum: Heart is normal in size. No pericardial effusion or thickening. Thoracic aorta is normal in caliber. No mediastinal or hilar lymphadenopathy. Lungs/pleura: No focal consolidation, pleural effusion, pulmonary edema or pneumothorax. Upper Abdomen: Same day CT abdomen/pelvis reported separately. Soft Tissues/Bones: No acute bone or soft tissue abnormality. Multilevel degenerative changes of the spine. IMPRESSION: No evidence of pulmonary embolism. I have personally reviewed the images of this examination and agree with the resident's findings and interpretation. Interpreted by: Дмитрий Mckinley Preliminary Report By: Mickey Morales Electronically signed By Дмитрий Mckinley Dictated Date: 05/26/2025 10:09:14 PM Prelim Date: 05/26/2025 10:15:34 PM Sign Date: 05/26/2025 10:28:34 PM Ordering Provider: [facility] LABORATORYOrdered By: Alexx Yap on 05-26-2025 Appearance (U) Clear (05/26/25 10:24 PM) Normal Clear AO Auto Urine SS Bilirubin Ql (U) Negative (05/26/25 10:24 PM) Normal Negative AO Auto Urine SS Color (U) Yellow (05/26/25 10:24 PM) Normal AO Auto Urine SS Glucose Test strip (U) [Mass/Vol] Negative Normal Negative AO Auto Urine SS Hemoglobin Auto test strip (U) [Mass/Vol] Negative (05/26/25 10:24 PM) Normal Negative AO Auto Urine SS Ketones Ql (U) Negative Normal Negative AO Auto Urine SS UA Leuk Est Negative (05/26/25 10:24 PM) Normal Negative AO Auto Urine SS UA Nitrite Negative (05/26/25 10:24 PM) Normal Negative AO Auto Urine SS UA pH 5.5 (05/26/25 10:24 PM) Normal 5.0 - 8.0 AO Auto Urine SS UA Protein Negative Normal Negative AO Auto Urine SS UA Spec Grav 1.010 *ABN* (05/26/25 10:24 PM) Invalid Interpretation Code 1.015-1.025 AO Auto Urine SS UA Specimen Type Clean Catch (05/26/25 10:24 PM) Normal AO Auto Urine SS UA Urobilinogen 0.2 E.U./dL Normal 0.2-1.0 AO Auto Urine SS LABORATORYOrdered By: SYSTEM SYSTEM on 05-26-2025 Troponin I.cardiac DL <= 0.01 ng/mL [Mass/Vol] 6 ng/L Normal 0 - 76 ng/L AO ADM SS Comment on above: Interpretive Data: H igh Sensitive Troponin I Reference Ranges: Female: 0-51 ng/L Male: 0-76 ng/L Testing performed on [employer] using a homogeneous sandwich chemiluminescent immunoassay based on [employer] technology. Albumin BCP dye [Mass/Vol] 3.8 G/dL Normal 3.5 - 5.0 G/dL AO ADM SS Albumin/Globulin [Mass ratio] 1.1 {ratio} Normal 1.1 - 2.5 ratio AO ADM SS ALP [Catalytic activity/Vol] 59 U/L Normal 40 - 135 U/L AO ADM SS ALT With P-5'-P [Catalytic activity/Vol] 19 U/L Normal 16 - 63 U/L AO ADM SS AST With P-5'-P [Catalytic activity/Vol] 22 U/L Normal 10 - 40 U/L AO ADM SS Basophils (Bld) [#/Vol] 0.0 103/mcL Normal 0.0 - 0.3 10^3/mcL AO Workflow SS Basophils/100 WBC (Bld) 0.5 % Normal 0.0 - 2.5 % AO Workflow SS Bilirubin [Mass/Vol] 0.4 mg/dL Normal 0.2 - 1 .0 mg/dL AO ADM SS Comment on above: Interpretive Data: U se of this assay is not recommended for patients undergoing treatment with eltrombopag due to the potential for falsely elevated results. Calcium [Mass/Vol] 9.1 mg/dL Normal 8.4 - 10. 2 mg/dL AO ADM SS Chloride [Moles/Vol] 107 mmol/L Normal 98 - 10 7 mmol/L AO ADM SS CO2 [Moles/Vol] 26 mmol/L Normal 22 - 29 mmol/L AO ADM SS Creatinine [Mass/Vol] 0.97 mg/dL Normal 0.67 - 1.17 mg/dL AO ADM SS Electrolyte Balance 9.0 mEq/L Normal 4.0 - 15 .0 mEq/L AO ADM SS Eosinophil, Absolute 0.1 103/mcL Normal 0.0 - 0 .7 10^3/mcL AO Workflow SS Eosinophils/100 WBC (Bld) 1.5 % Normal 0.0 - 6.0 % AO Workflow SS Erythrocyte distribution width (RBC) [Ratio] 13.6 % Normal 11.5 - 15.5 % AO Workflow SS Estimated Glomerular Filtration Rate 98 ml/min/1.73sqm Invalid Interpretation Code AO Chemistry S Comment on above: Interpretive Data: Stages of Chronic Kidney Disease (CKD) Stage Description eGFR(ml/min/1.73 sq.m.) CKD 1 Normal kidney function or >=90 normal kindney function with possible kidney damage (ex. Proteinuria) CKD 2 Kidney damage with mild loss 60-89 of kidney function CKD 3a Mild to moderate loss of kidney 45-59 function CKD 3b Moderate to severe loss of 30-44 of kindey function CKD 4 Severe loss of kidney function 15-29 CKD 5 Kidney failure <15 Note: (go live 2024) the eGFR calculation was updated to the 2020 CKD-EPI creatinine equation without a race factor to calculate the eGFR results. Globulin 3.6 G/dL Normal 2.7 - 4.4 G/dL AO ADM SS Glucose [Mass/Vol] 128 mg/dL High 70 - 105 mg/dL AO ADM SS Hematocrit (Bld) [Volume fraction] 45.3 % Normal 40.0 - 52.0 % AO Workflow SS Hemoglobin (Bld) [Mass/Vol] 15.3 G/dL Normal 13.0 - 17.5 G/dL AO Workflow SS Lipase [Catalytic activity/Vol] 111 U/L High 16 - 77 U/L AO ADM SS Lymphocytes (Bld) [#/Vol] 2.1 103/mcL Normal 0.9 - 4.3 10^3/mcL AO Workflow SS Lymphocytes/100 WBC (Bld) 26.4 % Normal 20.0 - 40.0 % AO Workflow SS Magnesium [Mass/Vol] 2.1 mg/dL Normal 1.8 - 2 .4 mg/dL AO ADM SS MCH (RBC) [Entitic mass] 32.4 pg Normal 27.0 - 33.0 pg AO Workflow SS MCHC 33.8 G/dL Normal 32.0 - 36.0 G/dL AO Workflow SS MCV (RBC) [Entitic vol] 96.0 fL Normal 81.0 - 100.0 fL AO Workflow SS Monocyte distribution width Auto (Bld) [Entitic vol] 19.45 1 Normal 0.00 - 20.00 AO Workflow SS Comment on above: Result Comment: For ED adult patients suspected of sepsis, MDW<=20.0 does not rule out sepsis or risk of sepsis Monocytes (Bld) [#/Vol] 0.6 103/mcL Normal 0.1 - 1.4 10^3/mcL AO Workflow SS Monocytes/100 WBC (Bld) 7.3 % Normal 2.0 - 13.0 % AO Workflow SS Neutrophils (Bld) [#/Vol] 5.2 103/mcL Normal 2.3 - 8.1 10^3/mcL AO Workflow SS Neutrophils/100 WBC (Bld) 64.3 % Normal 50.0 - 75.0 % AO Workflow SS Platelet mean volume (Bld) [Entitic vol] 8.7 fL Normal 6.4 - 10.5 fL AO Workflow SS Platelets (Bld) [#/Vol] 205 103/mcL Normal 150 - 450 10^3/mcL AO Workflow SS Potassium [Moles/Vol] 3.4 mmol/L Low 3.5 - 5.1 mmol/L AO ADM SS Protein [Mass/Vol] 7.4 G/dL Normal 6.4 - 8.2 G/dL AO ADM SS RBC (Bld) [#/Vol] 4.72 106/mcL Normal 4.50 - 6.0 0 10^6/mcL AO Workflow SS Sodium [Moles/Vol] 142 mmol/L Normal 136 - 145 mmol/L AO ADM SS Troponin I.cardiac DL <= 0.01 ng/mL [Mass/Vol] 5 ng/L Normal 0 - 76 ng/L AO ADM SS Comment on above: Interpretive Data: H igh Sensitive Troponin I Reference Ranges: Female: 0-51 ng/L Male: 0-76 ng/L Testing performed on [employer] using a homogeneous sandwich chemiluminescent immunoassay based on [employer] technology. Urea nitrogen [Mass/Vol] 9 mg/dL Normal 7 - 18 mg/dL AO ADM SS Urea nitrogen/Creatinine [Mass ratio] 9 ratio Normal 7 - 27 ratio AO ADM SS WBC (Bld) [#/Vol] 8.1 103/mcL Normal 4.5 - 10.8 10^3/mcL AO Workflow SS LIPon 05-26-2025 Lipase Level 111 U/L High 16-77 [facility] Comment on above: Performed By: #### A JOSE SCRUGGS, GFR, CBC, CMP, LIP, TROPHS, ADIFF #### [address] [address] MGon 05-26-2025 Magnesium [Mass/Vol] 2.1 mg/dL Normal 1.8-2.4 [facility] Comment on above: Performed By: #### A JOSE SCRUGGS, GFR, CBC, CMP, LIP, TROPHS, ADIFF #### [address] [address] TROPHSon 05-26-2025 High Sensitivity Troponin I 6 ng/L Normal 0-76 [facility] Comment on above: Result Comment: High Sensitive Troponin I Reference Ranges: Female: 0-51 ng/L Male: 0-76 ng/L Testing performed on iSentium using a homogeneous sandwich chemiluminescent immunoassay based on [employer] technology. Performed By: #### A JOSE SCRUGGS, GFR, CBC, CMP, LIP, TROPHS, ADIFF #### [address] [address] High Sensitivity Troponin I 5 ng/L Normal 0-76 [facility] Comment on above: Result Comment: High Sensitive Troponin I Reference Ranges: Female: 0-51 ng/L Male: 0-76 ng/L Testing performed on iSent[employer] using a homogeneous sandwich chemiluminescent immunoassay based on [employer] technology. Performed By: #### A SHEBA, MDW, GFR, CBC, CMP, LIP, TROPHS, ADIFF #### [address] [address] UAon 05-26-2025 Color (U) Yellow Normal [facility] Comment on above: Performed By: #### U A #### [place] [address] Glucose (U) [Mass/Vol] Negative Normal Negative [facility] Comment on above: Performed By: #### U A #### [place] [address] Ketones Ql (U) Negative Normal Negative [facility] Comment on above: Performed By: #### U A #### [place] [address] UA Appear Clear Normal Clear [facility] Comment on above: Performed By: #### U A #### [address] [address] UA Blood Negative Normal Negative [facility] Comment on above: Performed By: #### U A #### [address] [address] UA Leuk Est Negative Normal Negative [facility] Comment on above: Performed By: #### U A #### [place] [address] UA Nitrite Negative Normal Negative [facility] Comment on above: Performed By: #### U A #### [place] [address] UA pH 5.5 Normal 5.0 - 8.0 [facility] Comment on above: Performed By: #### U A #### [place] [id number] [place] [id number] UA Protein Negative Normal Negative [facility] Comment on above: Performed By: #### U A #### [place] [address] UA Spec Grav 1.010 Abnormal 1.015-1.025 [facility] Comment on above: Performed By: #### U A #### [place] [address] UA Specimen Type Clean Catch Normal [facility] Comment on above: Performed By: #### U A #### [place] [address] UA Urobilinogen 0.2 E.U./dL Normal 0.2-1.0 [facility] Comment on above: Performed By: #### U A #### [place] [address] Urobilinogen (U) [Mass/Vol] Negative Normal Negative [facility] Comment on above: Performed By: #### U A #### [place] [address] Absolute lymphocyte countOrd ered By: Yogi San on 05-10-2025 Lymphocytes Auto (Unsp spec) [#/Vol] 1.94 10*3/uL 0.83-4.51 [facility] Absolute neutrophil countOrd ered By: Yogi San on 05-10-2025 Neutrophils (Bld) [#/Vol] 3.4 10*3/uL 2.0-7.7 [facility] Anion gap in Serum or Plasma Ordered By: Yogi San on 05-10-2025 Anion gap [Moles/Vol] 11 mmol/L 5-15 [facility] Automated lymphocyte count a s percentage of total leukocytesOrdered By: Yogi San on 05-10-2025 Lymphocytes/100 WBC Auto (Unsp spec) 32.7 % 19-41 [facility] BUN/creatinine ratioOrdered By: Yogi San on 05-10-2025 Urea nitrogen/Creatinine [Mass ratio] 13.1 mg/mg 10-20 [facility] Basophil percentageOrdered B y: Yogi Zepedayas on 05-10-2025 Basophils/100 WBC (Bld) 0.8 % 0-1 [facility] Bilirubin, totalOrdered By: Yogi Echevarriaryan on 05-10-2025 Bilirubin [Mass/Vol] 0.80 mg/dL 0.00-1.30 [facility] CBC W/Diff, Automatedon 04-24 Absolute Lymph 1.94 X10 3/uL Normal 0.83-4.51 [facility] Comment on above: Order Comment: Order Date: 10/20/24 Order Info: [id number]- - CBCD Performed By: #### L 500.4100, L500.4050, L100.0100 #### [facility] [address] [place], [address] Absolute Neut 3.4 X10 3/uL Normal 2.0-7.7 [facility] Comment on above: Order Comment: Order Date: 10/20/24 Order Info: 0184- - CBCD Performed By: #### L 500.4100, L500.4050, L100.0100 #### [facility] [address] [place], [address] Basophils/100 WBC (Bld) 0.8 % Normal 0-1 [facility] Comment on above: Order Comment: Order Date: 10/20/24 Order Info: 0184-1 - CBCD Performed By: #### L 500.4100, L500.4050, L100.0100 #### [facility] [address] [place], [address] Eosinophils/100 WBC (Bld) 1.7 % Normal 0-5 [facility] Comment on above: Order Comment: Order Date: 10/20/24 Order Info: 0184-1 - CBCD Performed By: #### L 500.4100, L500.4050, L100.0100 #### [facility] [address] [place], [address] Erythrocyte distribution width (RBC) [Ratio] 12.6 % Normal 11.6-14.6 [facility] Comment on above: Order Comment: Order Date: 10/20/24 Order Info: 0184-1 - CBCD Performed By: #### L 500.4100, L500.4050, L100.0100 #### [facility] [address] [place], [address] Hematocrit (Bld) [Volume fraction] 41.6 % Normal 40-54 [facility] Comment on above: Order Comment: Order Date: 10/20/24 Order Info: 0184- - CBCD Performed By: #### L 500.4100, L500.4050, L100.0100 #### [facility] [address] [place], [address] Hemoglobin (Bld) [Mass/Vol] 14.2 g/dL Normal 13.0-16.5 [facility] Comment on above: Order Comment: Order Date: 10/20/24 Order Info: 0184- - CBCD Performed By: #### L 500.4100, L500.4050, L100.0100 #### [facility] [address] [place], [address] IG% 0.500 Normal 0.0-0.9 [facility] Comment on above: Order Comment: Order Date: 10/20/24 Order Info: 0184- - CBCD Result Comment: IG% - Immature Granulocytes (promyelocytes, myelocytes and metamyelocytes) > 1% indicates that a LEFT SHIFT is Present. Performed By: #### L 500.4100, L500.4050, L100.0100 #### [facility] [address] [place], [address] Lymphocytes/100 WBC (Bld) 32.7 % Normal 19-41 [facility] Comment on above: Order Comment: Order Date: 10/20/24 Order Info: 0184-1 - CBCD Performed By: #### L 500.4100, L500.4050, L100.0100 #### [facility] [address] [place], [address] MCH (RBC) [Entitic mass] 31.9 pg Normal 27.0-32.0 [facility] Comment on above: Order Comment: Order Date: 10/20/24 Order Info: 018- - CBCD Performed By: #### L 500.4100, L500.4050, L100.0100 #### [facility] [address] [place], [address] MCHC (RBC) [Mass/Vol] 34.1 g/dL Normal 32-36 [facility] Comment on above: Order Comment: Order Date: 10/20/24 Order Info: 018- - CBCD Performed By: #### L 500.4100, L500.4050, L100.0100 #### [facility] [address] [place], [address] MCV (RBC) [Entitic vol] 93.5 fL Normal 80-94 [facility] Comment on above: Order Comment: Order Date: 10/20/24 Order Info: 018- - CBCD Performed By: #### L 500.4100, L500.4050, L100.0100 #### [facility] [address] [place], [address] Monocytes/100 WBC (Bld) 7.7 % Normal 0-10 [facility] Comment on above: Order Comment: Order Date: 10/20/24 Order Info: 0184-1 - CBCD Performed By: #### L 500.4100, L500.4050, L100.0100 #### [facility] [address] [place], [address] Neutrophils/100 WBC (Bld) 56.6 % Normal 47-70 [facility] Comment on above: Order Comment: Order Date: 10/20/24 Order Info: 0184-1 - CBCD Performed By: #### L 500.4100, L500.4050, L100.0100 #### [facility] [address] [place], [address] Nucleated RBC (Bld) [#/Vol] 0 10*3/uL Normal 0-5 [facility] Comment on above: Order Comment: Order Date: 10/20/24 Order Info: 0184-1 - CBCD Performed By: #### L 500.4100, L500.4050, L100.0100 #### [facility] [address] [place], [address] Platelet mean volume (Bld) [Entitic vol] 10.9 fL Normal 6.2-12.0 [facility] Comment on above: Order Comment: Order Date: 10/20/24 Order Info: 018- - CBCD Performed By: #### L 500.4100, L500.4050, L100.0100 #### [facility] [address] [place], [address] Platelets (Bld) [#/Vol] 211 10*3/uL Normal 150-450 [facility] Comment on above: Order Comment: Order Date: 10/20/24 Order Info: 018- - CBCD Performed By: #### L 500.4100, L500.4050, L100.0100 #### [facility] [address] [place], [address] RBC (Bld) [#/Vol] 4.45 10*6/uL Low 4.6-6.2 [facility] Comment on above: Order Comment: Order Date: 10/20/24 Order Info: 0184-1 - CBCD Performed By: #### L 500.4100, L500.4050, L100.0100 #### [facility] [address] [place], [address] RDW SD 43.8 fl Normal 35.1-43.9 [facility] Comment on above: Order Comment: Order Date: 10/20/24 Order Info: 0184-1 - CBCD Performed By: #### L 500.4100, L500.4050, L100.0100 #### [facility] [address] [place], [address] WBC (Bld) [#/Vol] 5.9 10*3/uL Normal 4.4-11.0 [facility] Comment on above: Order Comment: Order Date: 10/20/24 Order Info: 0184-1 - CBCD Performed By: #### L 500.4100, L500.4050, L100.0100 #### [facility] [address] [place], [address] Calculated very low density lipoprotein (VLDL) cholesterol measurementOrdered By: Yogi San on 05-10-2025 Calculated very low density lipoprotein (VLDL) cholesterol measurement 26 mg/dL 5-40 [facility] Carbon dioxide, total [Moles /volume] in Central venous bloodOrdered By: Yogi San on 05-10-2025 CO2 [Moles/Vol] 23.6 mmol/L 21.0-32.0 [facility] Chloride assayOrdered By: Alba San on 05-10-2025 Chloride [Moles/Vol] 107 mmol/L 98-108 [facility] Comprehensive Metabolic Prof ilon 05-10-2025 Albumin [Mass/Vol] 4.1 g/dL Normal 3.5-5.0 [facility] Comment on above: Order Comment: Order Date: 10/20/24 Order Info: 0786-1 - CMP Order Info: [id number] - LIPID Order Info: [id number] - PSA Performed By: #### L 500.4100, L500.4050, L100.0100 #### [facility] [address] [place], [place], [address] Albumin/Globulin [Mass ratio] 1.4 {ratio} Normal 0.9-2.4 [facility] Comment on above: Order Comment: Order Date: 10/20/24 Order Info: 86-1 - CMP Order Info: [id number] - LIPID Order Info: [id number] - PSA Performed By: #### L 500.4100, L500.4050, L100.0100 #### [facility] [address] [place], [address] ALK PHOS 52 U/L Normal 40-129 [facility] Comment on above: Order Comment: Order Date: 10/20/24 Order Info: 86-1 - CMP Order Info: [id number] - LIPID Order Info: [id number] - PSA Performed By: #### L 500.4100, L500.4050, L100.0100 #### [facility] [address] [place], [address] ALT [Catalytic activity/Vol] 23 U/L Normal <=46 [facility] Comment on above: Order Comment: Order Date: 10/20/24 Order Info: 785- - CMP Order Info: [id number] - LIPID Order Info: [id number] - PSA Performed By: #### L 500.4100, L500.4050, L100.0100 #### [facility] [address] [place], [address] AST [Catalytic activity/Vol] 25 U/L Normal <=37 [facility] Comment on above: Order Comment: Order Date: 10/20/24 Order Info: 785- - CMP Order Info: [id number] - LIPID Order Info: [id number] - PSA Performed By: #### L 500.4100, L500.4050, L100.0100 #### [facility] [address] [place], [address] Bilirubin [Mass/Vol] 0.80 mg/dL Normal 0.00-1.30 [facility] Comment on above: Order Comment: Order Date: 10/20/24 Order Info: [id number] - CMP Order Info: [id number] - LIPID Order Info: [id number] - PSA Performed By: #### L 500.4100, L500.4050, L100.0100 #### [facility] [address] [place], [address] BUN/CRE 13.1 RATIO Normal 10-20 [facility] Comment on above: Order Comment: Order Date: 10/20/24 Order Info: 785- - CMP Order Info: [id number] - LIPID Order Info: [id number] - PSA Performed By: #### L 500.4100, L500.4050, L100.0100 #### [facility] [address] [place], [address] Calcium [Mass/Vol] 9.0 mg/dL Normal 7.6-11.0 [facility] Comment on above: Order Comment: Order Date: 10/20/24 Order Info: [id number] - CMP Order Info: - LIPID Order Info: [id number] - PSA Performed By: #### L 500.4100, L500.4050, L100.0100 #### [facility] [address] [place], [address] Chloride [Moles/Vol] 107 mmol/L Normal 98-108 [facility] Comment on above: Order Comment: Order Date: 10/20/24 Order Info: 785-10 - CMP Order Info: [id number] - LIPID Order Info: [id number] - PSA Performed By: #### L 500.4100, L500.4050, L100.0100 #### [facility] [address] [place], [address] CO2 [Moles/Vol] 23.6 mmol/L Normal 21.0-32.0 [facility] Comment on above: Order Comment: Order Date: 10/20/24 Order Info: 0786- - CMP Order Info: [id number] - LIPID Order Info: 285- - PSA Performed By: #### L 500.4100, L500.4050, L100.0100 #### [facility] [address] [place], [address] Creatinine [Mass/Vol] 1.01 mg/dL Normal 0.70-1.20 [facility] Comment on above: Order Comment: Order Date: 10/20/24 Order Info: 785- - CMP Order Info: [id number] - LIPID Order Info: [id number] - PSA Performed By: #### L 500.4100, L500.4050, L100.0100 #### [facility] [address] [place], [address] GAP 11 Normal 5-15 [facility] Comment on above: Order Comment: Order Date: 10/20/24 Order Info: [id number] - CMP Order Info: - LIPID Order Info: [id number] - PSA Performed By: #### L 500.4100, L500.4050, L100.0100 #### [facility] [address] [place], [address] GFR/1.73 sq M.predicted among non-blacks MDRD (S/P/Bld) [Vol rate/Area] 93 mL/min/{1.73_m2} Normal >60 [facility] Comment on above: Order Comment: Order Date: 10/20/24 Order Info: 785-10 - CMP Order Info: - LIPID Order Info: [id number] - PSA Result Comment: mL/m in/1.73m2 CKD-EPI Creatinine Equation (2020) Performed By: #### L 500.4100, L500.4050, L100.0100 #### [facility] [address] [place], [address] Globulin (S) [Mass/Vol] 3.0 g/dL Normal 2.2-4.2 [facility] Comment on above: Order Comment: Order Date: 10/20/24 Order Info: [id number] - CMP Order Info: - LIPID Order Info: [id number] - PSA Performed By: #### L 500.4100, L500.4050, L100.0100 #### [facility] [address] [place], [address] Glucose [Mass/Vol] 94 mg/dL Normal 70-99 [facility] Comment on above: Order Comment: Order Date: 10/20/24 Order Info: 785-10 - CMP Order Info: [id number] - LIPID Order Info: [id number] - PSA Performed By: #### L 500.4100, L500.4050, L100.0100 #### [facility] [address] [place], [address] Potassium [Moles/Vol] 4.2 mmol/L Normal 3.3-5.1 [facility] Comment on above: Order Comment: Order Date: 10/20/24 Order Info: [id number] - CMP Order Info: - LIPID Order Info: [id number] - PSA Performed By: #### L 500.4100, L500.4050, L100.0100 #### [facility] [address] [place], [address] Sodium [Moles/Vol] 141 mmol/L Normal 133-145 [facility] Comment on above: Order Comment: Order Date: 10/20/24 Order Info: [id number] - CMP Order Info: - LIPID Order Info: [id number] - PSA Performed By: #### L 500.4100, L500.4050, L100.0100 #### [facility] [address] [place], [address] T PROT 7.0 g/dL Normal 5.9-8.4 [facility] Comment on above: Order Comment: Order Date: 10/20/24 Order Info: 07 - CMP Order Info: [id number] - LIPID Order Info: [id number] - PSA Performed By: #### L 500.4100, L500.4050, L100.0100 #### [facility] [address] [place], [place], [address] Urea nitrogen [Mass/Vol] 13 mg/dL Normal 4-19 [facility] Comment on above: Order Comment: Order Date: 10/20/24 Order Info: [id number] - CMP Order Info: [id number] - LIPID Order Info: [id number] - PSA Performed By: #### L 500.4100, L500.4050, L100.0100 #### [facility] [address] [place], [address] Eosinophil percentageOrdered By: Yogi San on 05-10-2025 Eosinophils/100 WBC (Bld) 1.7 % 0-5 [facility] Erythrocyte distribution wid th ratioOrdered By: Yogi San on 05-10-2025 Erythrocyte distribution width (RBC) [Ratio] 12.6 % 11.6-14.6 [facility] Erythrocyte distribution wid th standard deviationOrdered By: Yogi San on 05-10-2025 Erythrocyte distribution width (RBC) [Ratio] 43.8 fl 35.1-43.9 [facility] Glomerular filtration rate ( GFR) estimation/1.73 sq m using serum, plasma, or whole bOrdered By: Yogi San on 05-10-2025 GFR/1.73 sq M.predicted among non-blacks MDRD (S/P/Bld) [Vol rate/Area] 93 mL/min/{1.73_m2} >60 [facility] Comment on above: mL/min/1.73m2 CKD-EP I Creatinine Equation (2020) Hematocrit Auto (Bld) [Volum e fraction]Ordered By: Yogi San on 05-10-2025 Hematocrit (Bld) [Volume fraction] 41.6 % 40-54 [facility] Hemoglobin measurementOrdere d By: Yogi San on 05-10-2025 Hemoglobin (Bld) [Mass/Vol] 14.2 g/dL 13.0-16.5 [facility] Immature granulocytes/100 WB C Auto (Bld)Ordered By: Yogi San on 05-10-2025 Immature granulocytes/100 WBC (Bld) 0.500 % 0.0-0.9 [facility] Comment on above: IG% - Immature Granu locytes (promyelocytes, myelocytes and metamyelocytes) > 1% indicates that a LEFT SHIFT is Present. LDL calc ser/plasOrdered By: Yogi San on 05-10-2025 Cholesterol in LDL [Mass/Vol] 133 mg/dL [facility] Comment on above: Ncanwjjfoj=196-827 m g/dL & Higher Cgko=958 mg/dL or greater Laboratory - Chemistry and C hemistry - challengeOrdered By: Yogi San on 05-10-2025 AST [Catalytic activity/Vol] 25 U/L <38 [facility] Lipid Profileon 05-10-2025 CHOL:HDL 4.91 Normal [facility] Comment on above: Order Comment: Order Date: 10/20/24 Order Info: 07- - CMP Order Info: [id number] - LIPID Order Info: [id number] - PSA Performed By: #### L 500.4100, L500.4050, L100.0100 #### [facility] [address] [place], [address] Cholesterol [Mass/Vol] 199 mg/dL Normal <=200 [facility] Comment on above: Order Comment: Order Date: 10/20/24 Order Info: 0786 - CMP Order Info: - LIPID Order Info: [id number] - PSA Result Comment: Chol esterol level, Desirable <200 mg/dL Borderline high cholesterol 200-239 mg/dL High cholesterol >=240 mg/dL Recommendations of the NCEP Adult Treatment Panel for the following risk-cutoff thresholds for the [place] population. Performed By: #### L 500.4100, L500.4050, L100.0100 #### [facility] [address] [place], [address] Cholesterol in HDL [Mass/Vol] 41 mg/dL Normal [facility] Comment on above: Order Comment: Order Date: 10/20/24 Order Info: 0786- - CMP Order Info: [id number] - LIPID Order Info: [id number] - PSA Result Comment: [place] onal Cholesterol Education Program (NCEP) guidelines: <40 mg/dL: Low HDL-cholesterol (major risk factor for CHD) >= 60 mg/dL: High HDL-cholesterol (negative risk factor for CHD) HDL-cholesterol is affected by a number of factors, e.g. smoking, exercise, hormones, sex and age. Performed By: #### L 500.4100, L500.4050, L100.0100 #### [facility] [address] [place], [address] Cholesterol in LDL [Mass/Vol] 133 mg/dL Normal [facility] Comment on above: Order Comment: Order Date: 10/20/24 Order Info: 0786 - CMP Order Info: - LIPID Order Info: [id number] - PSA Result Comment: Bord fmweyn=881-171 mg/dL Higher Hkyb=862 mg/dL or greater Performed By: #### L 500.4100, L500.4050, L100.0100 #### [facility] [address] [place], [address] Cholesterol in VLDL [Mass/Vol] 26 mg/dL Normal 5-40 [facility] Comment on above: Order Comment: Order Date: 10/20/24 Order Info: 07 - CMP Order Info: [id number] - LIPID Order Info: [id number] - PSA Performed By: #### L 500.4100, L500.4050, L100.0100 #### [facility] [address] [place], [address] Triglyceride [Mass/Vol] 130 mg/dL Normal [facility] Comment on above: Order Comment: Order Date: 10/20/24 Order Info: 0786- - CMP Order Info: [id number] - LIPID Order Info: [id number] - PSA Result Comment: The drugs N-Acetylcysteine and Metamizole may falsely depress this assay. Normal range: <150 mg/dL Borderline High: 150-199 mg/dL High: 200-499 mg/dL Very High: >500 mg/dL Performed By: #### L 500.4100, L500.4050, L100.0100 #### [facility] [place], [address] MCV (mean corpuscular volume ) determinationOrdered By: Yogi San on 05-10-2025 MCV (RBC) [Entitic vol] 93.5 fL 80-94 [facility] Mean corpuscular hemoglobin (MCH) determinationOrdered By: Yogi San on 05-10-2025 MCH (RBC) [Entitic mass] 31.9 pg 27.0-32.0 [facility] Mean corpuscular hemoglobin concentration (MCHC) determinationOrdered By: Yogi San on 05-10-2025 MCHC (RBC) [Mass/Vol] 34.1 g/dL 32-36 [facility] Mean platelet volume determi nationOrdered By: Yogi San on 05-10-2025 Platelet mean volume (Bld) [Entitic vol] 10.9 fL 6.2-12.0 [facility] Monocyte percentageOrdered B y: Yogi San on 05-10-2025 Monocytes/100 WBC (Bld) 7.7 % 0-10 [facility] Neutrophil percentageOrdered By: Yogi San on 05-10-2025 Neutrophils/100 WBC (Bld) 56.6 % 47-70 [facility] Nucleated red blood cell per centageOrdered By: Yogi San on 05-10-2025 Nucleated RBC/100 WBC (Bld) [Ratio] 0 % 0-5 [facility] PSA,Total - Annual Screenon 05-10-2025 PSA,TOT SCREEN 0.84 ng/mL Normal 0.02-4.00 [facility] Comment on above: Order Comment: Order Date: 10/20/24 Order Info: 0786-1 - CMP Order Info: [id number] - LIPID Order Info: [id number] - PSA Result Comment: This test was performed using the [employer] tPSA method. Measured values of a patient??sample can vary depending on the testing procedure used. PSA values determined on patient samples by different testing procedures cannot be used interchangeably. If there is a change in PSA assays while monitoring therapy, sequential testing should be performed to confirm baseline values. Performed By: #### L 501.9910 #### [facility] [address]. [place], [place], [id number] Platelet countOrdered By: Alba San on 05-10-2025 Platelets (Bld) [#/Vol] 211 10*3/uL 150-450 [facility] Potassium measurement (mass/ volume)Ordered By: Yogi San on 05-10-2025 Potassium (Unsp spec) [Mass/Vol] 4.2 mmol/L 3.3-5.1 [facility] RBC Auto (Bld) [#/Vol]Ordere d By: Yogi San on 05-10-2025 RBC (Bld) [#/Vol] 4.45 10*6/uL Low 4.6-6.2 [facility] Screening total cholesterol/ high density lipoprotein (HDL) cholesterol ratioOrdered By: Yogi San on 05-10-2025 Cholesterol.total/Itzel sterol in HDL [Mass ratio] 4.91 {ratio} [facility] Serum creatinine measurement (mass/volume)Ordered By: Yogi San on 05-10-2025 Creatinine [Mass/Vol] 1.01 mg/dL 0.70-1.20 [facility] Serum globulin measurementOr dered By: Yogi San on 05-10-2025 Globulin (S) [Mass/Vol] 3.0 g/dL 2.2-4.2 [facility] Serum glucose measurement (m ass/volume)Ordered By: Yogi San on 05-10-2025 Glucose [Mass/Vol] 94 mg/dL 70-99 [facility] Serum or plasma alanine morales otransferase (ALT) measurementOrdered By: Yogi San on 05-10-2025 ALT [Catalytic activity/Vol] 23 U/L <47 [facility] Serum or plasma albumin jonel urement (mass/volume)Ordered By: Yogi San on 05-10-2025 Albumin [Mass/Vol] 4.1 g/dL 3.5-5.0 [facility] Serum or plasma albumin/glob ulin mass ratioOrdered By: Yogi San on 05-10-2025 Albumin/Globulin [Mass ratio] 1.4 {ratio} 0.9-2.4 [facility] Serum or plasma alkaline gaby sphatase measurementOrdered By: Yogi San on 05-10-2025 ALP [Catalytic activity/Vol] 52 U/L 40-129 [facility] Serum or plasma calcium jonel urement (mass/volume)Ordered By: Yogi San on 05-10-2025 Calcium [Mass/Vol] 9.0 mg/dL 7.6-11.0 [facility] Serum or plasma cholesterol in HDL measurement (mass/volume)Ordered By: Yogi San on 05-10-2025 Cholesterol in HDL [Mass/Vol] 41 mg/dL >40 [facility] Comment on above: National Cholesterol Education Program (NCEP) guidelines:<40 mg/dL: Low HDL-cholesterol (major risk factor for CHD)>= 60 mg/dL: High HDL-cholesterol (negative risk factor for CHD)HDL-cholesterol is affected by a number of factors, e.g. smoking, exercise, hormones, sex and age. Serum or plasma cholesterol measurement (mass/volume)Ordered By: Yogi San on 05-10-2025 Cholesterol [Mass/Vol] 199 mg/dL <201 [facility] Comment on above: Cholesterol level, D esirable <200 mg/dLBorderline high cholesterol 200-239 mg/dLHigh cholesterol >=240 mg/dLRecommendations of the NCEP Adult Treatment Panel for the following risk-cutoff thresholds for the [place] population. Serum or plasma urea nitroge n measurement (mass/volume)Ordered By: Yogi San on 05-10-2025 Urea nitrogen [Mass/Vol] 13 mg/dL 4-19 [facility] Sodium levelOrdered By: Yogi San on 05-10-2025 Sodium [Moles/Vol] 141 mmol/L 133-145 [facility] Total proteinOrdered By: Rubio San on 05-10-2025 Protein [Mass/Vol] 7.0 g/dL 5.9-8.4 [facility] Triglycerides measurementOrd ered By: Yogi San on 05-10-2025 Triglyceride [Mass/Vol] 130 mg/dL <199 [facility] Comment on above: The drugs N-Acetylcy steine and Metamizole may falsely depress this assay. Normal range: <150 mg/dLBorderline High: 150-199 mg/dLHigh: 200-499 mg/dLVery High: >500 mg/dL White blood cell (WBC) count Ordered By: Yogi San on 05-10-2025 WBC (Bld) [#/Vol] 5.9 10*3/uL 4.4-11.0 [facility] Final Surgical Pathology Rep vesta 02-28-2025 Final Surgical Pathology Report . Pathology Reports Accession: Collected Date/Time: Received Date/Time: Pathologist: [id number] 02/23/2025 11:00 EDT 02/27/2025 08:49 EDT MD MALLIKA DE LOS SANTOS Final Surgical Pathology Report DIAGNOSIS: SIGMOID COLON, BIOPSY: - HYPERPLASTIC POLYP CLINICAL INFORMATION: ENCOUNTER FOR SCREENING FOR MALIGNANT NEOPLASM OF COLON, R/O ADENOMA Procedure: COLONOSCOPY Preoperative diagnosis: SCREENING Postoperative diagnosis: SCREENING SPECIMEN: A SIGMOID COLON POLYP GROSS DESCRIPTION: All parts labelled with patient name and [id number] Received in formalin labeled sigmoid polyp biopsies are 3 sosa-brown tissue fragments measuring 0.2 x 0.1 to 0.4 x 0.3 cm greatest dimension. Smallest fragments may not survive processing. TS-1 Batsheva Garrett, Grossing Black Studies Professor/ Dr. Jeff Curran, Pathologist Performed by Batsheva Garrett MICROSCOPIC DESCRIPTION: The microscopic examination is performed, except in the case of Gross Only. Verified by Pathology Report verified by [facility] MALLIKA DE LOS SANTOS MD Sign out Date: 02/28/2025 18:42 Performing Lab: [facility], [address] [place] [address] Pathology Dept Disclaimer If ancillary studies were utilized, the following Laboratory Developed Test (LDT) disclaimer will apply: Under CLIA requirements, [facility] is qualified to perform high complexity testing. For all ancillary stains, positive and negative controls stain appropriately. Performance characteristics of immunohistochemical and chromogenic in-situ hybridization tests have been determined by [facility]. These tests are used for clinical purposes, They should not be regarded as investigational or for research. . Normal [facility] Absolute lymphocyte countOrd ered By: Yogi San on 11-18-2023 Lymphocytes Auto (Unsp spec) [#/Vol] 2.12 10*3/uL 0.83-4.51 [facility] Automated lymphocyte count a s percentage of total leukocytesOrdered By: Yogi San on 11-18-2023 Lymphocytes/100 WBC Auto (Unsp spec) 38.4 % 19-41 [facility] Basophil percentageOrdered B y: Yogi San on 11-18-2023 Basophils/100 WBC (Bld) 0.7 % 0-1 [facility] Bilirubin [Mass/Vol] 0.70 mg/dL 0.20-1.00 [facility] Comment on above: For patients on eltr ombopag therapy, use of Dimension Marissa TBIL is not recommended. Chloride [Moles/Vol] 109 mmol/L 98-107 [facility] Cholesterol [Mass/Vol] 230 mg/dL <200 [facility] Comment on above: <200 mg/dL Desirable 200-240 mg/dL Borderline >240 mg/dL High Risk Eosinophils/100 WBC (Bld) 2.9 % 0-5 [facility] Glucose [Mass/Vol] 96 mg/dL 74-106 [facility] Hemoglobin (Bld) [Mass/Vol] 14.3 g/dL 13.0-16.5 [facility] Monocytes/100 WBC (Bld) 7.8 % 0-10 [facility] Neutrophils (Bld) [#/Vol] 2.7 10*3/uL 2.0-7.7 [facility] Neutrophils/100 WBC (Bld) 49.7 % 47-70 [facility] Potassium [Moles/Vol] 4.6 mmol/L 3.5-5.1 [facility] Protein [Mass/Vol] 7.2 g/dL 6.4-8.2 [facility] Sodium [Moles/Vol] 139 mmol/L 136-145 [facility] Triglyceride [Mass/Vol] 165 mg/dL <199 [facility] Comment on above: The drugs N-Acetylcy steine and Metamizole may falsely depress this assay.Serum Triglycerides Reference Interval Normal <150 mg/dL Borderline high 150 - 199 mg/dL High 200 - 499 mg/dL Very High > or = 500 mg/dL WBC (Bld) [#/Vol] 5.5 10*3/uL 4.4-11.0 [facility] Determination of erythrocyte mean corpuscular volume (MCV)Ordered By: Yogi San on 11-18-2023 MCV (RBC) [Entitic vol] 93.0 fL 80-94 [facility] Erythrocyte distribution wid th ratioOrdered By: Yogi San on 11-18-2023 Erythrocyte distribution width (RBC) [Ratio] 12.3 % 11.6-14.6 [facility] Erythrocyte distribution wid th standard deviationOrdered By: Yogi San on 11-18-2023 Erythrocyte distribution width (RBC) [Entitic vol] 42.5 fL 35.1-43.9 [facility] Hematocrit Auto (Bld) [Volum e fraction]Ordered By: Yogi San on 11-18-2023 Hematocrit (Bld) [Volume fraction] 42.3 % 40-54 [facility] High density lipoprotein (HD L) measurementOrdered By: Yogi San on 11-18-2023 Cholesterol in HDL (Body fld) [Mass/Vol] 40 mg/dL >40 [facility] Comment on above: The drugs N-Acetylcy steine and Metamizole may falsely depress this assay. Reference Range HDL <40 mg/dL Low HDL Cholesterol HDL >or= 60 mg/dL High HDL Cholesterol Immature granulocytes/100 WB C Auto (Bld)Ordered By: Yogi San on 11-18-2023 Immature granulocytes/100 WBC (Bld) 0.500 % 0.0-0.9 [facility] Comment on above: IG% - Immature Granu locytes (promyelocytes, myelocytes and metamyelocytes) > 1% indicates that a LEFT SHIFT is Present. Laboratory - Chemistry and C hemistry - challengeOrdered By: Yogi San on 11-18-2023 Albumin/Globulin [Mass ratio] 1.0 {ratio} 0.9-2.4 [facility] ALP [Catalytic activity/Vol] 51 U/L 45-117 [facility] ALT [Catalytic activity/Vol] 40 U/L 16-61 [facility] CO2 [Moles/Vol] 28.0 mmol/L 21.0-32.0 [facility] Globulin (S) [Mass/Vol] 3.6 g/dL 2.2-4.2 [facility] Urea nitrogen/Creatinine [Mass ratio] 16.6 mg/mg 10-20 [facility] Laboratory - Hematology and Cell countsOrdered By: Yogi San on 11-18-2023 MCH (RBC) [Entitic mass] 31.4 pg 27.0-32.0 [facility] MCHC (RBC) [Mass/Vol] 33.8 g/dL 32-36 [facility] Nucleated RBC/100 WBC (Bld) [Ratio] 0 % 0-5 [facility] Platelets (Bld) [#/Vol] 216 10*3/uL 150-450 [facility] Low density lipoprotein (LDL ) cholesterol measurementOrdered By: Yogi San on 11-18-2023 Cholesterol in LDL (Body fld) [Moles/Vol] 157 mg/dL 0-130 [facility] No Panel InformationOrdered By: Yogi San on 11-18-2023 Estimated GFR (MDRD) Amer 108 mL/min >60 [facility] Comment on above: GFR Calc Estimated GFR (MDRD) Non-Af Amer 89 mL/min >60 [facility] Comment on above: Non- GFR Calc Platelet mean volume Luis Armando-Ec ker (Bld) [Entitic vol]Ordered By: Yogi San on 11-18-2023 Platelet mean volume (Bld) [Entitic vol] 10.8 fL 6.2-12.0 [facility] RBC Auto (Bld) [#/Vol]Ordere d By: Yogi San on 11-18-2023 RBC (Bld) [#/Vol] 4.55 10*6/uL 4.6-6.2 [facility] Serum or plasma calcium jonel urement (mass/volume)Ordered By: Yogi San on 11-18-2023 Calcium [Mass/Vol] 9.0 mg/dL 8.5-10.1 [facility] Serum or plasma creatinine m easurement (mass/volume)Ordered By: Yogi San on 11-18-2023 Creatinine [Mass/Vol] 0.96 mg/dL 0.70-1.30 [facility] Comment on above: The validity of the calculated GFR & GFRAA in patients over 70 years has not been determined. Clinical correlation is essential. Serum or plasma urea nitroge n measurement (mass/volume)Ordered By: Yogi San on 11-18-2023 Urea nitrogen [Mass/Vol] 16 mg/dL 7-18 [facility] Thin prep Papanicolaou smear with manual screeningOrdered By: Yogi San on 11-18-2023 Thin prep Papanicolaou smear with manual screening 3.6 g/dL 3.2-5.0 [facility] Thin prep Papanicolaou smear with manual screening 27 U/L 15-37 [facility] Thin prep Papanicolaou smear with manual screening 2 5-15 [facility] Very low density lipoprotein (VLDL) cholesterol measurementOrdered By: Yogi San on 11-18-2023 Cholesterol in VLDL Calc [Moles/Vol] 33 mg/dL 5-40 [facility] CNOVon 05-12-2019 CNOV Office Visit (UCWSTR ) HENRIQUE LOPEZ ([id number]) 1980 M Date Time Provider Department 05/12/19 4:00 PM CHELSEY MONTELONGO [facility] During your visit today, we recorded the following information about you: Temperature Pulse Respiration Blood pressure 98.3 degrees 76/minute 16/minute 104/68 Weight 123.8 kg Chelsey Montelongo APRN.CNP 05/12/2019 4:54 PM Signed Subjective The history is provided by the patient. No trading manager was used. HPI Henrique Lopez is a 38 year old male who presents today for CC of sore throat. This started today. He is also having a itchy rash that started on abdomen. Denies any other ill symptoms, no fever, nasal congestion or cough. He denies any new plants exposures, soaps, lotions, detergents or medications. He has not used any treatment or medications. Denies any seasonal allergies. BP 104/68 (BP Site: Right Arm, BP Position: Sitting, BP Cuff Size: Large Adult) Pulse 76 Temp 36.8 ?C (98.3 ?F) (Right Tympanic) Resp 16 Wt 123.8 kg (273 lb) Social History Socioeconomic History Marital status: Single Spouse name: Not on file Number of children: Not on file Years of education: Not on file Highest education level: Not on file Social Needs Financial resource strain: Not on file Food insecurity - worry: Not on file Food insecurity - inability: Not on file Transportation needs - medical: Not on file Transportation needs - non-medical: Not on file Occupational History Not on file Tobacco Use Smoking status: Former Smoker Smokeless tobacco: Never Used Substance and Sexual Activity Alcohol use: Not on file Drug use: Not on file Sexual activity: Not on file Other Topics Concerns: Not on file Social History Narrative Not on file No past medical history on file. I have confirmed and edited as necessary, the [facility] Review of Systems Constitutional: Negative for chills and fever. HENT: Positive for sore throat. Negative for congestion, ear pain and sinus pain. Respiratory: Negative for cough. Musculoskeletal: Negative for myalgias. Skin: Positive for rash. Neurological: Negative for headaches. Objective Physical Exam Constitutional: He is well-developed, well-nourished, and in no distress. HENT: Head: Normocephalic and atraumatic. Right Ear: Tympanic membrane, external ear and ear canal normal. Left Ear: Tympanic membrane, external ear and ear canal normal. Nose: Nose normal. No mucosal edema or rhinorrhea. Right sinus exhibits no maxillary sinus tenderness and no frontal sinus tenderness. Left sinus exhibits no maxillary sinus tenderness and no frontal sinus tenderness. Mouth/Throat: Uvula is midline and mucous membranes are normal. Posterior oropharyngeal erythema present. No oropharyngeal exudate, posterior oropharyngeal edema or tonsillar abscesses. Cardiovascular: Normal rate, regular rhythm and normal heart sounds. Pulmonary/Chest: Effort normal and breath sounds normal. He has no decreased breath sounds. He has no wheezes. He has no rhonchi. He has no rales. Lymphadenopathy: Head (right side): No submental, no submandibular, no tonsillar and no preauricular adenopathy present. Head (left side): No submental, no submandibular, no tonsillar and no preauricular adenopathy present. He has no cervical adenopathy. Right cervical: No superficial cervical adenopathy present. Left cervical: No superficial cervical adenopathy present. Nursing note and vitals reviewed. ASSESSMENT/PLAN: 1. Sore throat - ICD9: 462, ICD10: J02.9 (primary diagnosis) - suspect post nasal drainage from - Rapid Strep negative in the office today - overnight throat culture pending - Discussed supportive care treatment with fluids, rest and analgesia. - The patient may also use warm salt water gargles, throat lozenges and/or OTC throat spray as needed. - The patient should follow up in one week if symptoms persist or worsen - Call back if drooling, increased temperature, symptoms of dehydration and/or still sick in one week 2. Rash - ICD9: 782.1, ICD10: R21 Appears to be allergic Medrol dose pack Start Triamcinolone 0.1% ointment twice daily for itch Start Benadryl PRN for itch May use zyrtec - Zyrtec 10 mg By mouth daily at bedtime Keep area dry and clean Follow up with PCP as needed. Diagnosis and treatment plan were discussed and questions were answered to the patient's satisfaction. Pt acknowledged understanding of concepts and follow up plan. Specific signs and symptoms that would indicate the need for higher level of care were discussed in detail warranting prompt ER evaluation. MONSE Cortés, CHARITO.MONSE 05/12/2019 4:45 PM Signed ASSESSMENT/PLAN: 1. Sore throat - ICD9: 462, ICD10: J02.9 (primary diagnosis) - suspect post nasal drainage from - Rapid Strep negative in the office today - overnight throat culture pending - Discussed supportive care treatment with fluids, rest and analgesia. - The patient may also use warm salt water gargles, throat lozenges and/or OTC throat spray as needed. - The patient should follow up in one week if symptoms persist or worsen - Call back if drooling, increased temperature, symptoms of dehydration and/or still sick in one week 2. Rash - ICD9: 782.1, ICD10: R21 Appears to be allergic Medrol dose pack Start Triamcinolone 0.1% ointment twice daily for itch Start Benadryl PRN for itch May use zyrtec also as needed Keep area dry and clean Follow up with PCP as needed. Chelsey Montelongo APRN.CNP 05/12/2019 6:31 PM Signed Addended by: CHELSEY MONTELONGO CNP on: 05/12/2019 06:31 PM Modules accepted: Orders Referring Provider: SELF [200] Allergies As of Date: 05/12/2019 Noted Allergy Reaction IODINE 05/12/2019 10 - Anaphylaxis SHELLFISH DERIVED 05/12/2019 10 - Anaphylaxis Date Reviewed: 05/12/2019 Reviewed by: Padmini Gonzalez MA - Fully Assessed Reason for Visit: Sore Throat [200] Cmt: X1 day Rash [1087] Cmt: On stomach, spread to upper thighs X1 day Primary Visit Diagnosis:Sore throat [J02.9] Other Visit Diagnosis:Rash [R21] Order(s):methylPREDNIS olone (MEDROL, SHAE,) 4 mg Dose-PackFollow dosing instructions, take with food.Disp: 1 PackageRfl: 0 triamcinolone acetonide (KENALOG) 0.1 % creamApply 1 application to affected area three times daily. Apply sparingly to area for rash/itching.Disp: 80 gRfl: 0 RAPID STREP TEST B/O [[id number]] Order #: [id number] Prescriptions as of 05/12/2019 Sig: MELATONIN ORAL Take by mouth at bedtime as n* IBUPROFEN ORAL Take by mouth as needed. ADVIL ORAL Take by mouth as needed. METHYLPREDNISOLONE 4 MG TABLE* Follow dosing instructions, t* TRIAMCINOLONE ACETONIDE 0.1 %* Apply 1 application to affect* Problem List As Of Date: 05/12/2019 (None) Other instructions from your clinician: ASSESSMENT/PLAN: 1. Sore throat - ICD9: 462, ICD10: J02.9 (primary diagnosis) - suspect post nasal drainage from - Rapid Strep negative in the office today - overnight throat culture pending - Discussed supportive care treatment with fluids, rest and analgesia. - The patient may also use warm salt water gargles, throat lozenges and/or OTC throat spray as needed. - The patient should follow up in one week if symptoms persist or worsen - Call back if drooling, increased temperature, symptoms of dehydration and/or still sick in one week 2. Rash - ICD9: 782.1, ICD10: R21 Appears to be allergic Medrol dose pack Start Triamcinolone 0.1% ointment twice daily for itch Start Benadryl PRN for itch May use zyrtec also as needed Keep area dry and clean Follow up with PCP as needed. Prescriptions ordered this encounter Disp Refills Start End METHYLPREDNISOLONE 4 MG TABLETS IN A* 1 Pa* 0 05/12/2019 05/18/2019 Class: Print RX Sig: Follow dosing instructions, take with food. TRIAMCINOLONE ACETONIDE 0.1 % TOPICA* 80 g 0 05/12/2019 05/12/2019 Route: TOPICAL Sig: Apply 1 application to affected area three times daily. Apply sparingly to area for rash/itching. Disc: Duplicate Entry TRIAMCINOLONE ACETONIDE 0.1 % TOPICA* 80 g 0 05/12/2019 Class: Print RX Route: TOPICAL Sig: Apply 1 application to affected area three times daily. Apply sparingly to area for rash/itching. Medications Discontinued During This Encounter triamcinolone acetonide (KENALOG) 0.* 80 g 0 05/12/2019 05/12/2019 Route: TOPICAL Sig: Apply 1 application to affected area three times daily. Apply sparingly to area for rash/itching. Disc: Duplicate Entry Encounter Status:Closed by CHELSEY MONTELONGO CNP on 05/12/19 [facility] PROGRESSon 05-12-2019 PROGRESS HNO ID: [id number] Author: Chelsey Montelongo Service: ? Author Type: Nurse Practitioner Type: Progress Notes Filed: 05/12/2019 4:54 PM Note Text: Subjective The history is provided by the patient. No trading manager was used. STEPHANIE Lopez is a 38 year old male who presents today for CC of sore throat. This started today. He is also having a itchy rash that started on abdomen. Denies any other ill symptoms, no fever, nasal congestion or cough. He denies any new plants exposures, soaps, lotions, detergents or medications. He has not used any treatment or medications. Denies any seasonal allergies. BP 104/68 (BP Site: Right Arm, BP Position: Sitting, BP Cuff Size: Large Adult) Pulse 76 Temp 36.8 ?C (98.3 ?F) (Right Tympanic) Resp 16 Wt 123.8 kg (273 lb) Social History Socioeconomic History Marital status: Single Spouse name: Not on file Number of children: Not on file Years of education: Not on file Highest education level: Not on file Social Needs Financial resource strain: Not on file Food insecurity - worry: Not on file Food insecurity - inability: Not on file Transportation needs - medical: Not on file Transportation needs - non-medical: Not on file Occupational History Not on file Tobacco Use Smoking status: Former Smoker Smokeless tobacco: Never Used Substance and Sexual Activity Alcohol use: Not on file Drug use: Not on file Sexual activity: Not on file Other Topics Concerns: Not on file Social History Narrative Not on file No past medical history on file. I have confirmed and edited as necessary, the [facility] Review of Systems Constitutional: Negative for chills and fever. HENT: Positive for sore throat. Negative for congestion, ear pain and sinus pain. Respiratory: Negative for cough. Musculoskeletal: Negative for myalgias. Skin: Positive for rash. Neurological: Negative for headaches. Objective Physical Exam Constitutional: He is well-developed, well-nourished, and in no distress. HENT: Head: Normocephalic and atraumatic. Right Ear: Tympanic membrane, external ear and ear canal normal. Left Ear: Tympanic membrane, external ear and ear canal normal. Nose: Nose normal. No mucosal edema or rhinorrhea. Right sinus exhibits no maxillary sinus tenderness and no frontal sinus tenderness. Left sinus exhibits no maxillary sinus tenderness and no frontal sinus tenderness. Mouth/Throat: Uvula is midline and mucous membranes are normal. Posterior oropharyngeal erythema present. No oropharyngeal exudate, posterior oropharyngeal edema or tonsillar abscesses. Cardiovascular: Normal rate, regular rhythm and normal heart sounds. Pulmonary/Chest: Effort normal and breath sounds normal. He has no decreased breath sounds. He has no wheezes. He has no rhonchi. He has no rales. Lymphadenopathy: Head (right side): No submental, no submandibular, no tonsillar and no preauricular adenopathy present. Head (left side): No submental, no submandibular, no tonsillar and no preauricular adenopathy present. He has no cervical adenopathy. Right cervical: No superficial cervical adenopathy present. Left cervical: No superficial cervical adenopathy present. Nursing note and vitals reviewed. ASSESSMENT/PLAN: 1. Sore throat - ICD9: 462, ICD10: J02.9 (primary diagnosis) - suspect post nasal drainage from - Rapid Strep negative in the office today - overnight throat culture pending - Discussed supportive care treatment with fluids, rest and analgesia. - The patient may also use warm salt water gargles, throat lozenges and/or OTC throat spray as needed. - The patient should follow up in one week if symptoms persist or worsen - Call back if drooling, increased temperature, symptoms of dehydration and/or still sick in one week 2. Rash - ICD9: 782.1, ICD10: R21 Appears to be allergic Medrol dose pack Start Triamcinolone 0.1% ointment twice daily for itch Start Benadryl PRN for itch May use zyrtec - Zyrtec 10 mg By mouth daily at bedtime Keep area dry and clean Follow up with PCP as needed. Diagnosis and treatment plan were discussed and questions were answered to the patient's satisfaction. Pt acknowledged understanding of concepts and follow up plan. Specific signs and symptoms that would indicate the need for higher level of care were discussed in detail warranting prompt ER evaluation. Chelsey Montelongo CNP Normal [facility] Emergency Room Note on 04-15-2018 [place] [facility] Room Note Normal [facility] ([place]) Pat Eduon 04-15-2018 Pat [facility] Normal [facility]) Patient Summary Documentson 04-15-2018 Patient Summary Documents Normal [facility] ([place]) XR KNEE THREE VIEWS RIGHTon 04-15-2018 XR KNEE THREE VIEWS RIGHT ORIGINALXR KNEE THREE VIEWS RIGHT CLINICAL STATEMENT: Lateral [...] resident's findings and interpretation. Interpreted By: Hudson Newtonreliminary Report By: Orion Treviño DOElectronically Signed By: Hudson Newton MD Dictated Date: 04/14/2018 10:42:53 PM Prelim Date: 04/14/2018 10:44:11 PM Sign Date: 04/14/2018 10:54:46 PM Normal [facility] ([place]) Encounters Encounter Date Encounter Type Care Provider Facility Start: 06-13-2025 ambulatory Yogi San Facilit y:[facility] Start: 06-08-2025 ambulatory Yogi San Facilit y:[facility] Start: 05-26-2025 End: 05-26-2025 Emergency department patient visit JERICA VASQUEZ DO [facility] [place] Start: 05-10-2025 End: 05-10-[address] Yogi San MD Work Phone: [facility] Start: 05-10-2025 End: 05-10-[address] Yogi San MD -[facility] Work Phone: Start: 05-10-2025 End: 05-10-2025 ambulatory Yogi San Facility:[facility] Start: 02-23-2025 End: 02-27-2025 ambulatory YOGI SAN MD Facility:[facility] Start: 02-23-2025 End: 02-27-[address] FIDEL EUBANKS MD [facility] [place] Start: 11-18-2023 End: 11-18-2023 ambulatory [facility] Work Phone: Start: 11-18-2023 End: 11-18-2023 Patient encounter procedure [facility] Start: 04-15-2018 End: 04-15-2018 Emergency department patient visit STEVE VANDA Facility:[facility] Procedures Date Procedure Procedure Detail Performing Clinician Start: 05-10-2025 Prostate specific an tigen measurement Dr. Yogi San MD Work Phone: Comment on above: This test was perfor med using the [employer] tPSA method. Measured values of a patient sample can vary depending on the testing procedure used. PSA values determined on patient samples by different testing procedures cannot be used interchangeably. If there is a change in PSA assays while monitoring therapy, sequential testing should be performed to confirm baseline values. Payers Date Payer Category Payer Self-pay [id number] 2025 Private Health Insurance [id number] 2025 Unknown [id number] 2025 Unknown [id number] 2018 Unknown [id number] 1980 Unknown [id number] 1978 Unknown [id number] Unknown [id number] 1836 Unknown [id number] Unknown [facility] *DO NOT USE* [id number] Unknown [id number] Unknown [id number] Unknown [id number] Social History Date Type Detail Facility Start: [facility]30-[facility]23 [facility] Start: 1980 Sex Assigned At Male [facility] Start: 03-30-2023 Tobacco smoking status Never s moked tobacco (finding) [facility] Sexual Orientation [facility] Start: 04-07-2010 Sex Male (finding) [facility] Discharge instructions 05-27-2025 Note Date & Type Note Facility 05-27-2025 Hospital Discharg e instructions Patient Education 05/26/2025 22:53:45 Pancreatitis Pancreatitis The pancreas is an organ in the abdomen that secretes digestive juices into the stomach. Pancreatitis is an inflammation of the pancreas. In many cases, it is caused when the duct that connects the pancreas and gallbladder is blocked by a gallstone. Heavy alcohol use is another major cause. Less common causes can include medicines, trauma, certain medical procedures, viruses, and toxins. Sometimes the cause of pancreatitis cannot be found. Genetic testing is sometimes done in those cases, especially if there is a family history of pancreas disease. Symptoms of pancreatitis include: Severe abdominal pain Nausea and vomiting Severe indigestion Racing heart Fever If the pancreatitis becomes chronic, diarrhea, chronic pain, weight loss, and poor nutrition can result. At first, pancreatitis may be treated in the hospital. It may be diagnosed by history, exam, blood tests, and sometimes imaging studies. There, fluids and medicines can be provided. The underlying cause of the problem must also be treated to prevent further problems. If gallstones are the cause, you and your healthcare provider can discuss options for treating them. This usually results in gallbladder surgery. Sometimes another test must be done to clear the drainage ducts of a blocked gallstones. If alcohol is the cause, talk with your healthcare provider about a program to help you stop drinking. Home care Don't drink alcohol. Rest in bed or sit up in a chair until you feel better. Take medicines as prescribed. If you were given an antibiotic for infection, take it until it is gone, even if you feel better. Let your healthcare provider know if you vomit up your medicine. Tips for eating and drinking: If instructed, avoid eating or drinking until nausea and vomiting go away. Try sipping clear liquids to prevent dehydration. When you begin eating again, start with small amounts. Have small, more frequent meals rather than larger meals. Low fat meals are best. Follow-up care Follow up with your healthcare provider as advised. When to seek medical advice Call your healthcare provider right away for any of the following: Continued or worsening pain Repeated vomiting Dizziness, weakness Fever of 100.4 F (38 C) or higher, or as directed by your healthcare provider Severe muscle cramps Call 911 Call 911 if you have any of the following: Vomiting blood or large amounts of blood in stool Seizure Loss of consciousness [phone] [facility]. [address] [place] [address], [place] [address]. All rights reserved. This information is not intended as a substitute for professional medical care. Always follow your healthcare professional's instructions. 05/26/2025 20:27:37 Paraesthesias Paraesthesias Paraesthesia is a burning or prickling sensation that is sometimes felt in the hands, arms, legs or feet. It can also occur in other parts of the body. It can also feel like tingling or numbness, skin crawling, or itching. The feeling is not comfortable, but it is not painful. (The pins and needles feeling that happens when a foot or hand falls asleep is a temporary paraesthesia.) Paraesthesias that last or come and go may be caused by medical issues that need to be treated. These include stroke, a bulging disk pressing on a nerve, a trapped nerve, vitamin deficiencies, uncontrolled diabetes, alcohol abuse, or even certain medicines. Tests are often done. These tests may include blood tests, X-ray, CT (computerized tomography) scan, nerve conduction studies (NCS), or a muscle test (electromyography). Depending on the cause, treatment may include physical therapy. Home care Tell your healthcare provider about all medicines you take. This includes prescription and huwt-gft-seggoye medicines, vitamins, and herbs. Ask if any of the medicines may be causing your problems. Don't make any changes to prescription medicines without talking to your healthcare provider first. You may be prescribed medicines to help relieve the tingling feeling or for pain. Take all medicines as directed. A numb hand or foot may be more prone to injury. To help protect it: oAlways use oven mitts. oTest water with an unaffected hand or foot. oUse caution when trimming nails. File sharp areas. oWear shoes that fit well to avoid pressure points, blisters, and ulcers. oInspect your hands and feet carefully (including the soles of your feet and between your toes) daily. If you see red areas, sores, or other problems, tell your healthcare provider. Follow-up care Follow up with your doctor, or as advised. You may need further testing or evaluation. When to seek medical advice Call your healthcare provider right away if any of the following occur: Numbness or weakness of the face, one arm, or one leg Slurred speech, confusion, trouble speaking, walking, or seeing Severe headache, fainting spell, dizziness, or seizure Chest, arm, neck, or upper back pain Loss of bladder or bowel control Open wound with redness, swelling, or pus [phone] [facility]. [address] [place] [address], [place] [address]. All rights reserved. This information is not intended as a substitute for professional medical care. Always follow your healthcare professional's instructions. 05/26/2025 20:27:34 Abdominal Pain Abdominal Pain Abdominal pain is pain in the stomach or belly area. Everyone has this pain from time to time. In many cases it goes away on its own. But abdominal pain can sometimes be due to a serious problem, such as appendicitis. So it s important to know when to get help. Causes of abdominal pain There are many possible causes of abdominal pain. Common causes in adults include: Constipation, diarrhea, or gas Stomach acid flowing back up into the esophagus (acid reflux or heartburn) Severe acid reflux, called GERD (gastroesophageal reflux disease) A sore in the lining of the stomach or small intestine (peptic ulcer) Inflammation of the gallbladder, liver, or pancreas Gallstones or kidney stones Appendicitis Intestinal blockage An internal organ pushing through a muscle or other tissue (hernia) Urinary tract infections In women, menstrual cramps, fibroids, ovarian cysts, pelvic inflammatory disease, or endometriosis Inflammation or infection of the intestines, including Crohn's disease and ulcerative colitis Irritable bowel syndrome Diagnosing the cause of abdominal pain Your healthcare provider will give you a physical exam help find the cause of your pain. If needed, you will have tests. Belly pain has many possible causes. So it can be hard to find the reason for your pain. Giving details about your pain can help. Tell your provider where and when you feel the pain, and what makes it better or worse. Also let your provider know if you have other symptoms such as: Fever Tiredness Upset stomach (nausea) Vomiting Changes in bathroom habits Blood in the stool or black, tarry stool Weight loss that you can't explain (involuntary weight loss?) Also report any family history of stomach or intestinal problems, or cancers. Tell your provider about all your alcohol use and drug use. Tell your provider about all medicines you use, including herbs, vitamins, and supplements. Treating abdominal pain Some causes of pain need emergency medical treatment right away. These include appendicitis or a bowel blockage. Other problems can be treated with rest, fluids, or medicines. Your healthcare provider can give you specific instructions for treatment or self-care based on what is causing your pain. If you have vomiting or diarrhea, sip water or other clear fluids. When you are ready to eat solid foods again, start with small amounts of mtqn-ym-lwhtce, low-fat foods. These include apple sauce, toast, or crackers. When to get medical care Call 911 or go to the hospital right away if you: Can t pass stool and are vomiting Are vomiting blood or have bloody diarrhea or black, tarry diarrhea Have chest, neck, or shoulder pain Feel like you might pass out Have pain in your shoulder blades with nausea Have sudden, severe belly pain Have new, severe pain unlike any you have felt before Have a belly that is rigid, hard, and hurts to touch Call your healthcare provider if you have: Pain for more than 5 days Bloating for more than 2 days Diarrhea for more than 5 days A fever of 100.4 F (38 C) or higher, or as directed by your healthcare provider Pain that gets worse Weight loss for no reason Continued lack of appetite Blood in your stool How to prevent abdominal pain Here are some tips to help prevent abdominal pain: Eat smaller amounts of food at each meal. Don't eat greasy, fried, or other high-fat foods. Don't eat foods that give you gas. Exercise regularly. Drink plenty of fluids. To help prevent GERD symptoms: Quit smoking. Reduce alcohol and foods that increase stomach acid. Don't use aspirin or lyje-lbp-ahhterb pain and fever medicines, if possible. This includes nonsteroidal anti-inflammatory drugs (NSAIDs). Lose excess weight. Finish eating at least 2 hours before you go to bed or lie down. Raise the head of your bed. 9614-1342 [employer] [facility]. [address] [place] [address]. All rights reserved. This information is not intended as a substitute for professional medical care. Always follow your healthcare professional's instructions. 05/26/2025 20:27:32 Chest Pain, Uncertain Cause Uncertain Causes of Chest Pain Chest pain can happen for a number of reasons. Sometimes the cause can't be determined. If your condition does not seem serious, and your pain does not appear to be coming from your heart, your healthcare provider may recommend watching it closely. Sometimes the signs of a serious problem take more time to appear. Many problems not related to your heart can cause chest pain. These include: Musculoskeletal. Costochondritis is an inflammation of the tissues around the ribs that can occur from trauma or overuse injuries, or a strain of the muscles of the chest wall Respiratory. Pneumonia, collapsed lung (pneumothorax), or inflammation of the lining of the chest and lungs (pleurisy) Gastrointestinal. Esophageal reflux, heartburn, ulcers, or gallbladder disease Anxiety and panic disorders Nerve compression and inflammation Rare miscellaneous problems such as aortic aneurysm (a swelling of the large artery coming out of the heart) or pulmonary embolism (a blood clot in the lungs) Home care After your visit, follow these recommendations: Rest today and avoid strenuous activity. Take any prescribed medicine as directed. Be aware of any recurrent chest pain and notice any changes Follow-up care Follow up with your healthcare provider if you do not start to feel better within 24 hours, or as advised. Call 911 Call 911 if any of these occur: A change in the type of pain: if it feels different, becomes more severe, lasts longer, or begins to spread into your shoulder, arm, neck, jaw or back Shortness of breath or increased pain with breathing Weakness, dizziness, or fainting Rapid heart beat Crushing sensation in your chest When to seek medical advice Call your healthcare provider right away if any of the following occur: Cough with dark colored sputum (phlegm) or blood Fever of 100.4 F (38 C) or higher, or as directed by your healthcare provider Swelling, pain or redness in one leg [phone] [facility]. [address] [place] [address]. All rights reserved. This information is not intended as a substitute for professional medical care. Always follow your healthcare professional's instructions. Follow Up Care 05/26/2025 20:17:06 With:ALISHA MCKINNEY MD Address: [address] [facility] [address] [facility] [place] [address]- [phone] When:2-4 days With:BAO ROBBINS DO Address: [address] [facility] [place] [address]- [phone] When:3-5 days With:Go to emergency room if symptoms worsen Address:Unknown When:2-4 days With:YOGI SAN MD Address: [address] [place] [address]- [phone] When:2-4 days [facility] Clinical Note 05-26-2025 Note Date & Type Note Facility 05-26-2025 Note Discharge Instructions Thank you for allowing [facility] to assist you with your healthcare needs. The following is important discharge information regarding your hospital visit. Diagnosis from Today's Visit Abdominal pain Chest pain Elevated lipase Paresthesia What to Do Next Instructions from Your Care Team Your lipase here was elevated at 111 may be a sign of pancreatitis however your CT did not mention any signs of pancreatitis. Take Percocet as needed for severe pain. Percocet is narcotic do not exceed the recommended dose not take before operating heavy machinery. May otherwise take Tylenol and or Motrin. Recommend bowel rest/clear liquids for the next few days progress diet as tolerated. Do not exceed the recommended dose. Be careful and take Tylenol as Percocet does contain some Tylenol so do not exceed the recommended dose. Take Zofran as needed for nausea. Would recommend follow-up with Dr. Pascual of GI or GI doctor of your choosing. Also would recommend follow-up with cardiovascular consultants, Bobby Caballero or heart doctor of your choosing given your chest pain. Return the emergency department if you experience worsening symptoms or any other care concern. No qualifying data available. Post Acute Orders No qualifying data available. You Need to Schedule the Following Appointments Follow Up with ALISHA MCKINNEY MD When:Within 2-4 days Where:[address] [facility] [address] [facility] [place] [address]- [phone] Follow Up with BAO ROBBINS DO When:Within 3-5 days Where:[address] [facility] [place] [address] [phone] Follow Up with Go to emergency room if symptoms worsen When:Within 2-4 days Follow Up with YOGI SAN MD When:Within 2-4 days Where:[address] [place] [address]- [phone] Allergies iodine Medications Please ask your primary doctor or pharmacist before taking any other medication not listed, including over the counter drugs, herbal medications, vitamins and or supplements as they may interact with your home medications. What How Much When Why Instructions Last Dose New acetaminophen-oxyCODONE (Percocet 5 mg-325 mg oral tablet) 1 tab(s) by mouth Every 6 hours as needed for Pain Elevated lipase Abdominal pain Duration: 3 Days Printed Prescription New ondansetron (Zofran 4 mg oral tablet) 1 tab(s) by mouth Every 8 hours as needed for Nausea/Vomiting Duration: 3 Days Printed Prescription Please take this list to your next doctor s visit. Bring all medications you take, including over the counter medications, herbals and other supplements with you to your doctor s visit. Patients and families are reminded to discard old lists and to update any records with all medication providers or retail pharmacies. Education Materials Pancreatitis The pancreas is an organ in the abdomen that secretes digestive juices into the stomach. Pancreatitis is an inflammation of the pancreas. In many cases, it is caused when the duct that connects the pancreas and gallbladder is blocked by a gallstone. Heavy alcohol use is another major cause. Less common causes can include medicines, trauma, certain medical procedures, viruses, and toxins. Sometimes the cause of pancreatitis cannot be found. Genetic testing is sometimes done in those cases, especially if there is a family history of pancreas disease. Symptoms of pancreatitis include: Severe abdominal pain Nausea and vomiting Severe indigestion Racing heart Fever If the pancreatitis becomes chronic, diarrhea, chronic pain, weight loss, and poor nutrition can result. At first, pancreatitis may be treated in the hospital. It may be diagnosed by history, exam, blood tests, and sometimes imaging studies. There, fluids and medicines can be provided. The underlying cause of the problem must also be treated to prevent further problems. If gallstones are the cause, you and your healthcare provider can discuss options for treating them. This usually results in gallbladder surgery. Sometimes another test must be done to clear the drainage ducts of a blocked gallstones. If alcohol is the cause, talk with your healthcare provider about a program to help you stop drinking. Home care Don't drink alcohol. Rest in bed or sit up in a chair until you feel better. Take medicines as prescribed. If you were given an antibiotic for infection, take it until it is gone, even if you feel better. Let your healthcare provider know if you vomit up your medicine. Tips for eating and drinking: If instructed, avoid eating or drinking until nausea and vomiting go away. Try sipping clear liquids to prevent dehydration. When you begin eating again, start with small amounts. Have small, more frequent meals rather than larger meals. Low fat meals are best. Follow-up care Follow up with your healthcare provider as advised. When to seek medical advice Call your healthcare provider right away for any of the following: Continued or worsening pain Repeated vomiting Dizziness, weakness Fever of 100.4 F (38 C) or higher, or as directed by your healthcare provider Severe muscle cramps Call 911 Call 911 if you have any of the following: Vomiting blood or large amounts of blood in stool Seizure Loss of consciousness [phone] [employer] [place] [address], [place] [address]. All rights reserved. This information is not intended as a substitute for professional medical care. Always follow your healthcare professional's instructions. Paraesthesias Paraesthesia is a burning or prickling sensation that is sometimes felt in the hands, arms, legs or feet. It can also occur in other parts of the body. It can also feel like tingling or numbness, skin crawling, or itching. The feeling is not comfortable, but it is not painful. (The pins and needles feeling that happens when a foot or hand falls asleep is a temporary paraesthesia.) Paraesthesias that last or come and go may be caused by medical issues that need to be treated. These include stroke, a bulging disk pressing on a nerve, a trapped nerve, vitamin deficiencies, uncontrolled diabetes, alcohol abuse, or even certain medicines. Tests are often done. These tests may include blood tests, X-ray, CT (computerized tomography) scan, nerve conduction studies (NCS), or a muscle test (electromyography). Depending on the cause, treatment may include physical therapy. Home care Tell your healthcare provider about all medicines you take. This includes prescription and wirp-vez-yqlvudd medicines, vitamins, and herbs. Ask if any of the medicines may be causing your problems. Don't make any changes to prescription medicines without talking to your healthcare provider first. You may be prescribed medicines to help relieve the tingling feeling or for pain. Take all medicines as directed. A numb hand or foot may be more prone to injury. To help protect it: oAlways use oven mitts. oTest water with an unaffected hand or foot. oUse caution when trimming nails. File sharp areas. oWear shoes that fit well to avoid pressure points, blisters, and ulcers. oInspect your hands and feet carefully (including the soles of your feet and between your toes) daily. If you see red areas, sores, or other problems, tell your healthcare provider. Follow-up care Follow up with your doctor, or as advised. You may need further testing or evaluation. When to seek medical advice Call your healthcare provider right away if any of the following occur: Numbness or weakness of the face, one arm, or one leg Slurred speech, confusion, trouble speaking, walking, or seeing Severe headache, fainting spell, dizziness, or seizure Chest, arm, neck, or upper back pain Loss of bladder or bowel control Open wound with redness, swelling, or pus [id number] [facility]. [address] [place] [address]. All rights reserved. This information is not intended as a substitute for professional medical care. Always follow your healthcare professional's instructions. Abdominal Pain Abdominal pain is pain in the stomach or belly area. Everyone has this pain from time to time. In many cases it goes away on its own. But abdominal pain can sometimes be due to a serious problem, such as appendicitis. So it s important to know when to get help. Causes of abdominal pain There are many possible causes of abdominal pain. Common causes in adults include: Constipation, diarrhea, or gas Stomach acid flowing back up into the esophagus (acid reflux or heartburn) Severe acid reflux, called GERD (gastroesophageal reflux disease) A sore in the lining of the stomach or small intestine (peptic ulcer) Inflammation of the gallbladder, liver, or pancreas Gallstones or kidney stones Appendicitis Intestinal blockage An internal organ pushing through a muscle or other tissue (hernia) Urinary tract infections In women, menstrual cramps, fibroids, ovarian cysts, pelvic inflammatory disease, or endometriosis Inflammation or infection of the intestines, including Crohn's disease and ulcerative colitis Irritable bowel syndrome Diagnosing the cause of abdominal pain Your healthcare provider will give you a physical exam help find the cause of your pain. If needed, you will have tests. Belly pain has many possible causes. So it can be hard to find the reason for your pain. Giving details about your pain can help. Tell your provider where and when you feel the pain, and what makes it better or worse. Also let your provider know if you have other symptoms such as: Fever Tiredness Upset stomach (nausea) Vomiting Changes in bathroom habits Blood in the stool or black, tarry stool Weight loss that you can't explain (involuntary weight loss?) Also report any family history of stomach or intestinal problems, or cancers. Tell your provider about all your alcohol use and drug use. Tell your provider about all medicines you use, including herbs, vitamins, and supplements. Treating abdominal pain Some causes of pain need emergency medical treatment right away. These include appendicitis or a bowel blockage. Other problems can be treated with rest, fluids, or medicines. Your healthcare provider can give you specific instructions for treatment or self-care based on what is causing your pain. If you have vomiting or diarrhea, sip water or other clear fluids. When you are ready to eat solid foods again, start with small amounts of hyqr-sd-xuvytr, low-fat foods. These include apple sauce, toast, or crackers. When to get medical care Call 911 or go to the hospital right away if you: Can t pass stool and are vomiting Are vomiting blood or have bloody diarrhea or black, tarry diarrhea Have chest, neck, or shoulder pain Feel like you might pass out Have pain in your shoulder blades with nausea Have sudden, severe belly pain Have new, severe pain unlike any you have felt before Have a belly that is rigid, hard, and hurts to touch Call your healthcare provider if you have: Pain for more than 5 days Bloating for more than 2 days Diarrhea for more than 5 days A fever of 100.4 F (38 C) or higher, or as directed by your healthcare provider Pain that gets worse Weight loss for no reason Continued lack of appetite Blood in your stool How to prevent abdominal pain Here are some tips to help prevent abdominal pain: Eat smaller amounts of food at each meal. Don't eat greasy, fried, or other high-fat foods. Don't eat foods that give you gas. Exercise regularly. Drink plenty of fluids. To help prevent GERD symptoms: Quit smoking. Reduce alcohol and foods that increase stomach acid. Don't use aspirin or xhmd-igb-cryksvt pain and fever medicines, if possible. This includes nonsteroidal anti-inflammatory drugs (NSAIDs). Lose excess weight. Finish eating at least 2 hours before you go to bed or lie down. Raise the head of your bed. [facility]. [address] [place] [address]. All rights reserved. This information is not intended as a substitute for professional medical care. Always follow your healthcare professional's instructions. Uncertain Causes of Chest Pain Chest pain can happen for a number of reasons. Sometimes the cause can't be determined. If your condition does not seem serious, and your pain does not appear to be coming from your heart, your healthcare provider may recommend watching it closely. Sometimes the signs of a serious problem take more time to appear. Many problems not related to your heart can cause chest pain. These include: Musculoskeletal. Costochondritis is an inflammation of the tissues around the ribs that can occur from trauma or overuse injuries, or a strain of the muscles of the chest wall Respiratory. Pneumonia, collapsed lung (pneumothorax), or inflammation of the lining of the chest and lungs (pleurisy) Gastrointestinal. Esophageal reflux, heartburn, ulcers, or gallbladder disease Anxiety and panic disorders Nerve compression and inflammation Rare miscellaneous problems such as aortic aneurysm (a swelling of the large artery coming out of the heart) or pulmonary embolism (a blood clot in the lungs) Home care After your visit, follow these recommendations: Rest today and avoid strenuous activity. Take any prescribed medicine as directed. Be aware of any recurrent chest pain and notice any changes Follow-up care Follow up with your healthcare provider if you do not start to feel better within 24 hours, or as advised. Call 911 Call 911 if any of these occur: A change in the type of pain: if it feels different, becomes more severe, lasts longer, or begins to spread into your shoulder, arm, neck, jaw or back Shortness of breath or increased pain with breathing Weakness, dizziness, or fainting Rapid heart beat Crushing sensation in your chest When to seek medical advice Call your healthcare provider right away if any of the following occur: Cough with dark colored sputum (phlegm) or blood Fever of 100.4 F (38 C) or higher, or as directed by your healthcare provider Swelling, pain or redness in one leg [facility]. [address] [place], [place] [id number]. All rights reserved. This information is not intended as a substitute for professional medical care. Always follow your healthcare professional's instructions. Additional Information VACCINATE! IT SAVES LIVES! Members of the community who have not yet received the COVID-19 vaccine and would like to receive it can visit one of [facility] vaccine clinics. There are many vaccine clinic locations within the [facility]. For locations and available times, please visit [email or web address].[place].gov/. It is important to note that some COVID mobile vaccine clinics are held outdoors and may be canceled in rainy or stormy conditions. To learn more about pediatric vaccinations (ages 5-11), we invite you to visit the [facility] webpage. [email or web address]/[email or web address]-Frequently-[email or web address] -Questions.html To learn more about the COVID-19 vaccine, we invite you to visit the CDC website for a list of frequently asked questions. https://www.cdc.gov/coronavirus/2019-n cov/vaccines/faq.html [facility] Patient Portal Access Instructions: Stay connected with your healthcare team and access your personal medical information anytime with the [facility] Patient Portal. If you would like a full copy of your medical records please contact the [facility] Medical Records Department Wednesday through Wednesday between 8a.m. and 4:30p.m. Please follow the directions below to access the portal: 1.Access the email account you provided upon registration to the hospital.2.Look for an invitation email from [facility].3.Open the email and access the invitation link: Accept Invitation to [facility]4.Fill in the required booth to create your account. Sign into [email or web address] with your username and password that you created in the above steps to stay up to date. You can then view a summary of results, a summary of your visits, and the ability to download your summaries to your computer or send the information securely to a physician. Remember that your healthcare information is confidential, so carefully consider who you will allow to register on the [facility] Patient Portal for access to your information. You can also access the [facility] Patient Portal on the [employer]. Simply click on Health Records under Health Data and then click on the [employer] logo. HOW TO SAFELY DISPOSE OF PRESCRIPTION MEDICATIONS Please use one of the following methods to safely dispose of your unused medications. 1.Use a drug disposal kit: the drug disposal pouch allows you to safely discard your old and unused drugs. Ask your nurse to give you one when you are discharged.2.Visit a local take-back location: Many local pharmacies and police departments have programs that collect old and unwanted prescription drugs. Call your local pharmacy or go to http://Aeropost.Kitchfix/1M1Xq4k to find one close to you.3.Make use of household items: Use cat litter or old coffee grounds to dispose medications if other options are not available. Mix your drugs with these household products, seal them in an airtight container and throw it into the garbage. Call [facility]: [phone] to be sure your drugs can be disposed of in this way. Some medicines may require a different approach.4.Never flush your medications down the toilet. IF YOU HAVE BEEN PRESCRIBED AN OPIOIDS FOR PAIN If you have been prescribed an opioid (such as hydrocodone, oxycodone or morphine), it is critical to understand the possible side effects and risks of opioid pain medications. Even when taken as directed, opioids can have several side effects including: Tolerance, meaning you might need to take more of a medication for the same pain relief. Nausea, vomiting and/or constipation. Sleepiness, dizziness, dry mouth, confusion, depression or itching. Physical dependence, meaning you have withdrawal symptoms when a medication is stopped ? this can develop within a few days. KNOW YOUR RESPONSIBILITIES It is important to know exactly how much and how often to take the opioid pain medications you are prescribed. Never take opioids in higher amounts or more often than prescribed. Do not combine opioids with alcohol or other drugs that cause drowsiness, such as benzodiazepines, also known as benzos, including diazepam and alprazolam, muscle relaxants or sleep aids. Never sell or share prescription opioids. This is illegal. Store opioids in a secure place and out of reach of others (including children, family, friends and visitors). The last page(s) of this document has been signed and retained as a CHART COPY Signatures Patient Education Materials Pancreatitis Paraesthesias Abdominal Pain Chest Pain, Uncertain Cause Medication Leaflets My discharge plan and instructions have been reviewed and explained to me and I,HENRIQUE LOPEZ understand my current condition and have read and understand these discharge instructions. I have received a written copy of the plan/instructions. If I have questions, I am aware that I should contact my doctor. Patient/Advertising Editor Signature: _ Date/Time: Relationship to Patient: Witness Name/Signature: Date/Time: [facility] Clinical Note 05-26-2025 Note Date & Type Note Facility 05-26-2025 Note Exam Date Time Procedure Performing Provider Status 05/26/25 9:[address] Abd/Pelvis w/ IV Contrast Only ДМИТРИЙ BETANCOURT MD; Auth (Verified) [id number] ORIGINAL EXAMINATION: CT OF THE ABDOMEN AND PELVIS WITH CONTRAST 05/26/2025 9:27 pm TECHNIQUE: CT of the abdomen and pelvis was performed with the administration of intravenous contrast. Multiplanar reformatted images are provided for review. Automated exposure control, iterative reconstruction, and/or weight based adjustment of the mA/kV was utilized to reduce the radiation dose to as low as reasonably achievable. COMPARISON: None. HISTORY: ORDERING SYSTEM PROVIDED HISTORY: Reason for Exam: intermittent upper abdominal pain x1 week. chest pain today. abdominal pain FINDINGS: Lower Chest: Same day CT chest reported separately. Organs: Liver, gallbladder, pancreas, spleen and adrenal glands are unremarkable. Kidneys: Symmetric nephrograms. No mass, nephrolithiasis or hydronephrosis. Ureters are normal in caliber. Pelvis: Bladder is suboptimally distended but otherwise appears unremarkable. Prostate is within normal limits for size. No pelvic or inguinal lymphadenopathy. GI: Colonic diverticulosis without diverticulitis. No bowel dilation or wall thickening. Nonvisualized appendix, no pericecal inflammatory changes. Unremarkable stomach. Small duodenal diverticulum. Small ovoid calcified density in the distal ileum is presumed to be ingested medication. No free intraperitoneal air. No abdominal lymphadenopathy. Vasculature: No aneurysm. Soft Tissues: No acute findings. Bones: No acute findings. Multilevel degenerative changes of the spine. Minimal grade 1 retrolisthesis of L3 on L4 and L4 on L5. Degenerative changes of the hips. IMPRESSION: No acute findings. Colonic diverticulosis without diverticulitis. I have personally reviewed the images of this examination and agree with the resident's findings and interpretation. Interpreted by: Дмитрий Mckinley Preliminary Report By: Mickey Morales Electronically signed By Дмитрий Mckinley Dictated Date: 05/26/2025 10:24:36 PM Prelim Date: 05/26/2025 10:29:43 PM Sign Date: 05/26/2025 10:37:40 PM Ordering Provider: [facility] Clinical Note 05-26-2025 Note Date & Type Note Facility 05-26-2025 Note Exam Date Time Procedure Performing Provider Status 05/26/25 9:[address] Angiography Chest w/ Contrast ДМИТРИЙ MILLER MD; Auth (Verified) [id number] ORIGINAL EXAMINATION: CTA OF THE CHEST 05/26/2025 9:24 pm TECHNIQUE: CTA of the chest was performed after the administration of intravenous contrast. Multiplanar reformatted images are provided for review. MIP images are provided for review. Automated exposure control, iterative reconstruction, and/or weight based adjustment of the mA/kV was utilized to reduce the radiation dose to as low as reasonably achievable. COMPARISON: None. HISTORY: ORDERING SYSTEM PROVIDED HISTORY: Reason for Exam: pt c/o upper lt chest pain w numbness/tingling in lt arm started a couple of hours ago. had intermittent upper abd pain x1 week, pain FINDINGS: Pulmonary Arteries: Pulmonary arteries are adequately opacified for evaluation. No evidence of intraluminal filling defect to suggest pulmonary embolism. Mediastinum: Heart is normal in size. No pericardial effusion or thickening. Thoracic aorta is normal in caliber. No mediastinal or hilar lymphadenopathy. Lungs/pleura: No focal consolidation, pleural effusion, pulmonary edema or pneumothorax. Upper Abdomen: Same day CT abdomen/pelvis reported separately. Soft Tissues/Bones: No acute bone or soft tissue abnormality. Multilevel degenerative changes of the spine. IMPRESSION: No evidence of pulmonary embolism. I have personally reviewed the images of this examination and agree with the resident's findings and interpretation. Interpreted by: Дмитрий Mckinley Preliminary Report By: Mickey Morales Electronically signed By Дмитрий Mckinley Dictated Date: 05/26/2025 10:09:14 PM Prelim Date: 05/26/2025 10:15:34 PM Sign Date: 05/26/2025 10:28:34 PM Ordering Provider: JERICA VASQUEZ [facility] Clinical Note 05-26-2025 Note Date & Type Note Facility 05-26-2025 Note Exam Date Time Procedure Performing Provider Status 05/26/25 8:26 PM EKG [ED AO] - CV JERICA VASQUEZ DO; Auth (Verified) ECG Final Report Sinus rhythm Low voltage, precordial leads Electronic Signature: JERICA VASQUEZ DO 05/26/2025 20:30:46 [facility] Evaluation + Plan note Note Date & Type Note Facility Evaluation + Plan note No data available for this section [facility] Evaluation note Note Date & Type Note Facility Evaluation note No assessment information availa [facility] Work Phone: Hospital Discharge instructions Note Date & Type Note Facility Hospital Discharge instructions No data available for this section [facility] Progress note Note Date & Type Note Facility Progress note No data available for this section [facility] Reason for referral (narrative) Note Date & Type Note Facility Reason for referral (narrative) No reason for referral information available [facility] Work Phone: Summary Purpose Family History No Family History Records FoundNo Family History Records Found No data available for this section No data available for this section No Family History Records FoundNo Family History Records Found Advance Directives No Advanced Directives Records FoundNo Advanced Directives Records FoundNo Advanced Directives Records FoundNo Advanced Directives Records Found Chief Complaint and Reason for Visit Chief Complaint Admit Date E ORDER May 10, 2025 9:37 am Additional Source Comments (unrecognized sect ion and content) No Status Records FoundNo Status Records FoundNo Status Records FoundNo Status Records Found INFORMATION SOURCE (unrecogn ized section and content) DATE CREATED AUTHOR 04/15/2018 [facility] ([place]) DATE CREATED AUTHOR AUTHOR'S ORGANIZ ATION 05/12/2019 [facility] DATE CREATED AUTHOR AUTHOR'S ORGANIZ ATION 06/02/2025 [facility] DATE CREATED AUTHOR AUTHOR'S ORGANIZ ATION 06/07/2025 [facility] Care Teams (unrecognized sec tion and content) Team Status: Active Member Role Status Dates Dr. Yogi San MD Family Provider Active Dr. Yogi San MD Primary Care Provider Active Team Status: Inactive Member Role Status Dates Dr. Yogi San MD Primary Care Provider, Attend ing Provider Active Team Status: Active Member Role/Relationship Status Dates Dr. Yogi San MD Family Provider Active Dr. Yogi San MD Primary Care Provider Active Team Status: Inactive Member Role/Relationship Status Dates Dr. Yogi San MD Primary Care Provider Active Start: May 10, 2025 End: May 10, 2025 Dr. Yogi San MD Attending Provider Active Start: May 10, 2025 End: May 10, 2025 Dr. Yogi San MD Referring Provider Active Start: May 10, 2025 End: May 10, 2025 Goals (unrecognized section and content) Goals may be documented in a n alternate section No data available for this sectionGoals may be documented in an alternate section No data available for this section FOR RECORDS PERTAINING TO PATIENTS WHO ARE OR HAVE BEEN ENROLLED IN A CHEMICAL DEPENDENCY/SUBSTANCEABUSE PROGRAM, SOME INFORMATION MAY BE OMITTED. This clinical summary was aggregated from multiple sources. Caution should be exercised in using it in the provision of clinical care. This summary normalizes information from multiple sources, and as a consequence, information in this document may materially change the coding, format and clinical context of patient data. In addition, data may be omitted in some cases. CLINICAL DECISIONS SHOULD BE BASED ON THE PRIMARY CLINICAL RECORDS. [employer] provides no warranty or guarantee of the accuracy or completeness of information in this document.
--- NOTE | 2025-06-08 07:32 | US_ITS ---
PROCEDURE: ABD LIMITED W/ ELASTOGRAPHY REASON FOR EXAM: FATTY LIVER COMPARISON: None. TECHNIQUE: Right upper quadrant abdominal ultrasound. [facility] ElastQ Imaging shear wave elastography for non-invasive assessment of liver tissue stiffness. [employer] EPIQ Elite. FINDINGS: LIVER: Size: Borderline hepatomegaly. Length: 17.4 cm Echotexture: Diffusely echogenic suggesting fatty infiltration Contour: Normal Lesions: None identified Elastography: EQI Med: 4.7 kPa EQI Med Prashanth: 1.25 m/s IQR/Med: 19.6 %* GALLBLADDER: No stones sludge wall thickening or tenderness. COMMON BILE DUCT: Normal measuring 4 mm . PANCREAS: Visualized portions are sonographically unremarkable. Visualized portions of the right kidney are unremarkable. No right upper quadrant ascites. US/ABD Limited w/ Elastography IMPRESSION: Normal to mild hepatic fibrosis. Fatty infiltration of the liver. Reference Values: SRU <1.37 m/s (5.7kPa): No to mild fibrosis 1.37 m/s - 2.2 m/s: Moderate to severe fibrosis >2.2 m/s (15kPa): Significant fibrosis / cirrhosis METAVIR Score F2 or higher: 1.34 m/s (5.7kPa) F3 or higher: 1.55 m/s (7.3kPa) F4: 1.80 m/s (10kPa) * If the IQR/Med is >30%, the variance in the measurements is a large and the a ccuracy of the measurement may be in question. Reading Location: [place] [address]
== END | disposition home or self-care (01) ==
PROVIDERS: PCP Family Medicine; Referring Provider Family Medicine; Visit Provider Family Medicine
DX: K76.0 Fatty (change of) liver, not elsewhere classified (principal)
CPT/HCPCS: 76705; 76981

== ENCOUNTER → 2025-06-13 | Outpatient (CLI) | payer OTHER, SELFPAY ==
--- NOTE | 2025-06-13 14:40 | NEURO ---
NCS and/or EMG Patient Report Ordering Doctor: Vipul Harrell DATE OF SERVICE: 06/13/25 Henrique presents with complaints of numbness and tingling in both hands. Electrodiagnostic findings: Left median motor nerve demonstrates normal distal latency with reduced amplitude and normal conduction velocity. Right median motor nerve demonstrates prolonged latency with normal amplitude and conduction velocity. Ulnar motor response within normal limits bilaterally. Prolonged right median sensory latency at the wrist. Needle EMG testing was performed upper limbs. All muscles tested showed no evidence of denervation with normal motor unit action potentials. Electrodiagnostic impression: This is an abnormal study in the upper limbs. 1. Electrodiagnostic findings suggestive of bilateral median mononeuropathy. This is consistent with a mild to moderate bilateral carpal tunnel syndrome. Multi Select Codes Neurology Neurology Interp Codes: 80180-64 Musc test done w/n test comp (interp) (2) and 95515-55 Nrv cndj test 11-12 studies (interp)
== END | disposition home or self-care (01) ==
LOC: PSN 10:10
PROVIDERS: PCP Family Medicine; Referring Provider Family Medicine; Visit Provider Family Medicine
DX: G56.03 Carpal tunnel syndrome, bilateral upper limbs (principal)
CPT/HCPCS: 95886; 95912